=== PATIENT | male | born 1960 | race Caucasian/White ===

== ENCOUNTER 2018-02-21 09:04 | Inpatient (IN) | payer BC ==
[2018-02-21 10:37] VITALS: BMI 38.9
--- NOTE | 2018-02-21 13:36 | HP ---
CIWA Score - CIWA Score Nausea/Vomitin Muscle Tremors: 3 Anxiety: 3 Agitation: 3 Paroxysmal Sweats: 1-Minimal Palms Moist Orientation: 0-Oriented Tacttile Disturbances: 1-Very Mild Itch/Numbness Auditory Disturbances: 1-Very Mild Visual Disturbances: 0-None Headache: 2-Mild CIWA-Ar Total Score: 17 Admission ROS BHS - HPI Chief Complaint: i need help to stop drinking alcohol and cocaine Allergies/Adverse Reactions: Allergies Allergy/AdvReac Type Severity Reaction Status Date / Time No Known Allergies Allergy Verified 02/21/18 10:43 History of Present Illness: this 57 years old male with alcohol and cocaine dependence,seeking detox, withdrawal symptom,alst detox 2013 at [facility] htn and diabetes type 2 nicotine dependence anxiety,depression,insomnia longest sobriety 1 year Exam Limitations: No Limitations - Ebola screening Have you traveled outside of the country in the last 21 days: No (N) Have you had contact with anyone from an Ebola affected area: No Have you been sick,other than usual withdrawal symptoms: No Do you have a fever: No - Review of Systems Constitutional: Loss of Appetite, Malaise, Night Sweats, Changes in sleep, Weakness EENT: reports: Tearing, Nose Congestion Respiratory: reports: No Symptoms reported, Other (asthma) Cardiac: reports: No Symptoms Reported GI: reports: Diarrhea, Nausea, Vomiting, Abdominal cramping : reports: No Symptoms Reported Musculoskeletal: reports: Back Pain, Muscle Pain Integumentary: reports: Dryness Neuro: reports: Headache, Tremors Endocrine: reports: No Symptoms Reported Hematology: reports: No Symptoms Reported Psychiatric: reports: No Sypmtoms Reported, Judgement Intact, Mood/Affect Appropiate, Orientated x3, Anxious, Depressed (insomnia) Patient History - Patient Medical History Hx Asthma: Yes (on albuterol inhaler) Hx Chronic Obstructive Pulmonary Disease (COPD): No Hx Cancer: No Hx Cardiac Disorders: No Hx Congestive Heart Failure: No Hx Hypertension: Yes (on med) Hx Hypercholesterolemia: Yes Hx Pacemaker: No HX Cerebrovascular Accident: No Hx Seizures: No Hx Dementia: No Hx Diabetes: Yes (NIDDM) Hx Gastrointestinal Disorders: No Hx Liver Disease: No Hx Genitourinary Disorders: No Hx Sexually Transmitted Disorders: Yes (gonorrhea) Hx Renal Disease (ESRD): No Hx Thyroid Disease: No Hx Human Immunodeficiency Virus (HIV): No (last 2015 negative) Hx Hepatitis C: Yes (treated) Hx Depression: Yes (anxiety) Hx Suicide Attempt: No Hx Bipolar Disorder: No Hx Schizophrenia: No Other Medical History: insomnia,no suicidal,no homicidal - Patient Surgical History Past Surgical History: Yes Hx Neurologic Surgery: No Hx Cataract Extraction: No Hx Cardiac Surgery: No Hx Lung Surgery: No Hx Breast Surgery: No Hx Breast Biopsy: No Hx Abdominal Surgery: No Hx Appendectomy: No Hx Cholecystectomy: No Hx Genitourinary Surgery: No Hx Section: No Hx Orthopedic Surgery: Yes (fx, right elbow 2002) Anesthesia Reaction: No - PPD History Previous Implant?: Yes Documented Results: Negative w/o proof Implanted On Prior [facility] Admission?: No PPD to be Administered?: Yes - Smoking Cessation Smoking history: Current every day smoker Have you smoked in the past 12 months: Yes Aproximately how many cigarettes per day: 6 Hx Chewing Tobacco Use: No Initiated information on smoking cessation: Yes 'Breaking Loose' booklet given: 02/21/18 - Substance & Tx. History Hx Alcohol Use: Yes Hx Substance Use: Yes Substance Use Type: Alcohol, Cocaine Hx Substance Use Treatment: Yes (2012 [facility]) - Substances Abused Cocaine Route: Inhalation Frequency: 1-2 times per week Amount used: $100 Age of first use: 23 Date of Last Use: 02/19/18 Alcohol-beer Route: Oral Frequency: Daily Amount used: 1-2 6 pks. Age of first use: 16 Date of Last Use: 02/21/18 Family Disease History - Family Disease History Family Disease History: Other: Father (alcohol,), Mother () Admission Physical Exam [facility] - Vital Signs Vital Signs: Vital Signs - 24 hr 02/21/18 10:31 Temperature 97.5 F L Pulse Rate 84 Respiratory 20 Rate Blood Pressure 150/91 - Physical General Appearance: Yes: Moderate Distress, Tremorous, Irritable, Sweating, Anxious HEENTM: Yes: Normal ENT Inspection, [place], Pharynx Normal Respiratory: Yes: Lungs Clear, Normal Breath Sounds, No Respiratory Distress Neck: Yes: Within Normal Limits, Supple, Trachea in good position Breast: Yes: Within Normal Limits Cardiology: Yes: Within Normal Limits, Regular Rhythm, Regular Rate, S1, S2 Abdominal: Yes: Within Normal Limits, Normal Bowel Sounds, Non Tender, Flat, Soft Genitourinary: Yes: Within Normal Limits Back: Yes: Muscle Spasm Musculoskeletal: Yes: Back pain, Muscle Pain Extremities: Yes: Tremors, Inflammation Neurological: Yes: Fully Oriented, Alert, Motor Strength 5/5 Integumentary: Yes: Dry Lymphatic: Yes: Within Normal Limits - Diagnostic (1) Alcohol dependence with uncomplicated withdrawal Current Visit: Yes Status: Acute (2) Cocaine dependence Current Visit: Yes Status: Acute (3) Syncope Current Visit: Yes Status: Acute (4) Essential hypertension Current Visit: Yes Status: Acute (5) DM2 (diabetes mellitus, type 2) Current Visit: Yes Status: Acute (6) Nicotine dependence Current Visit: Yes Status: Acute (7) Arthritis of both knees Current Visit: Yes Status: Acute Cleared for Admission [facility] - Detox or Rehab [facility] Level of Care: Medically Managed Detox Regimen/Protocol: Librium [facility] Breath Alcohol Content Breath Alcohol Content: 0.064 Urine Drug Screen - Results Drug Screen Negative: No Urine Drug Screen Results: AFTAB-Cocaine
[2018-02-21] MEDS ORDERED: MAGNESIUM HYDROX 2400MG/30ML ORAL SUSPENSION 30 ML CUP PO PRN (13:49)
[2018-02-21] MEDS ORDERED: NICOTINE POLACRILEX 2 MG GUM BUC PRN (13:49)
[2018-02-21] MEDS ORDERED: MAGNESIUM CITRATE 300 ML BOTTLE PO PRN (13:49)
[2018-02-21] MEDS ORDERED: LOPERAMIDE HCL 2 MG CAPSULE PO PRN (13:49)
[2018-02-21] MEDS ORDERED: guaiFENesin/D-METHORPHAN HB 10 ML UNIT-DOSE CUPS PO PRN (13:49)
[2018-02-21] MEDS ORDERED: MAG HYDROX/AL HYDROX/SIMETH 30 ML UNIT-DOSE CUP PO PRN (13:49)
[2018-02-21] MEDS ORDERED: chlordiazePOXIDE HCL 25 MG CAPSULE PO PRN (13:49)
[2018-02-21] MEDS ORDERED: P-EPHED 60MG/TRIPROLIDI 2.5MG TABLET PO PRN (13:49)
[2018-02-21] MEDS ORDERED: MENTHOL/PHENOL 1 EACH UD MM PRN (13:49)
[2018-02-21] MEDS ORDERED: chlordiazePOXIDE HCL 25 MG CAPSULE PO ONE (13:55)
[2018-02-21] MEDS: chlordiazePOXIDE HCL 25 MG CAPSULE PO SCH ×2 (17:46→22:16)
[2018-02-21 18:48] LABS: URINE APPEARANCE CLEAR; URINE BILIRUBIN NEGATIVE (<2.0 mg/dL); URINE BLOOD NEGATIVE (NEGATIVE); URINE COLOR LTYELLOW; URINE GLUCOSE (UA) NEGATIVE (NEGATIVE); URINE KETONE NEGATIVE (NEGATIVE); URINE LEUK ESTERASE NEGATIVE (NEGATIVE); URINE NITRITE NEGATIVE (NEGATIVE); URINE PROTEIN NEGATIVE (NEGATIVE); URINE UROBILINOGEN NEGATIVE mg/dL (0.2-1.0)
[2018-02-21] MEDS: THIAMINE HCL 100 MG TABLET (FP) PO SCH (22:16)
[2018-02-22] MEDS: chlordiazePOXIDE HCL 25 MG CAPSULE PO SCH ×4 (05:23→22:23)
[2018-02-22] MEDS: sitaGLIPtin PHOSPHATE 100 MG TABLET (FP) PO SCH (06:12)
[2018-02-22] MEDS ORDERED: cloNIDine HCL 0.1 MG TABLET PO ONE (06:40)
--- NOTE | 2018-02-22 06:43 | PN ---
BHS Progress Note Note: Patient's blood pressure this morning is B/P 183/99. Patient is asymptomatic. Vital Signs Temperature 96.6 F L 02/22/18 05:52 Pulse Rate 78 02/22/18 05:52 Respiratory Rate 20 02/22/18 05:52 Blood Pressure 183/99 02/22/18 05:52 O2 Sat by Pulse Oximetry (%) Action: Clonidine 0.1mg tablet oral ordered.
[2018-02-22] MEDS ORDERED: sitaGLIPtin PHOSPHATE 100 MG TABLET (FP) PO SCH (10:00)
[2018-02-22 10:12] LABS: HEMATOCRIT 39.4 % (35.4-49); HEMOGLOBIN 13.5 GM/dL (11.7-16.9); MCH 31.9 pg (25.7-33.7); MCHC 34.3 g/dl (32.0-35.9); MEAN PLT VOLUME 8.5 fl (7.5-11.1); PLATELET COUNT 340 K/MM3 (134-434); RBC 4.24 M/mm3 (4.00-5.60); RDW 13.3 % (11.9-15.9)
[2018-02-22] MEDS: LISINOPRIL 20 MG TABLET (FP) PO SCH (10:22)
[2018-02-22] MEDS: PRENATAL VITAMINS W/ FOLIC ACID TABLET (FP) PO SCH (10:22)
[2018-02-22] MEDS: ACETAMINOPHEN 325 MG TABLET (FP) PO PRN ×2 (10:22→17:28)
[2018-02-22 10:31] LABS: CHLORIDE 102 mmol/L (98-107); POTASSIUM 4.1 mmol/L (3.5-5.1); SODIUM 138 mmol/L (136-145)
[2018-02-22 10:41] LABS: ALK PHOS 89 U/L (45-117); ANION GAP 8 (8-16); BILIRUBIN,TOTAL 0.4 mg/dL (0.2-1.0); BLOOD UREA NITROGEN 11 mg/dL (7-18); CALCIUM 9.1 mg/dL (8.5-10.1); CO2 28 mmol/L (21-32); CREATININE 0.8 mg/dL (0.7-1.3); GLUCOSE,RANDOM 147 mg/dL (74-106); SGOT/AST 26 U/L (15-37); SGPT/ALT 31 U/L (12-78); TOT PROT 8.2 g/dl (6.4-8.2)
--- NOTE | 2018-02-22 12:42 | PN ---
[facility] CIWA - CIWA Score Nausea/Vomitin-No Nausea/No Vomiting Muscle Tremors: 4-Moderate,w/Arms Extend Anxiety: 4-Mod. Anxious/Guarded Agitation: 4-Moderately Restless Paroxysmal Sweats: 1-Minimal Palms Moist Orientation: 0-Oriented Tacttile Disturbances: 0-None Auditory Disturbances: 0-None Visual Disturbances: 0-None Headache: 0-None Present CIWA-Ar Total Score: 13 S Progress Note (SOAP) Subjective: ANXIETY,FATIGUE, RIGHT KNEE PAIN. DENIES TRUAMA. Objective: 02/22/18 12:41 Vital Signs 02/22/18 02/22/18 05:52 09:14 Temperature 96.6 F L 97.2 F L Pulse Rate 78 88 Respiratory 20 20 Rate Blood Pressure 183/99 123/79 Laboratory Tests 02/21/18 02/21/18 02/21/18 11:10 15:00 16:32 WBC RBC Hgb Hct MCV MCH MCHC RDW Plt Count MPV Sodium Potassium Chloride Carbon Dioxide Anion Gap BUN Creatinine Creat Clearance w eGFR POC Glucometer 189 132 Random Glucose Calcium Total Bilirubin AST ALT Alkaline Phosphatase Total Protein Albumin Urine Color Ltyellow Urine Appearance Clear Urine pH 6.0 Ur Specific [place] 1.012 Urine Protein Negative Urine Glucose (UA) Negative Urine Ketones Negative Urine Blood Negative Urine Nitrite Negative Urine Bilirubin Negative Urine Urobilinogen Negative Ur Leukocyte Esterase Negative 02/22/18 02/22/18 02/22/18 05:23 06:00 06:00 WBC 6.0 RBC 4.24 Hgb 13.5 Hct 39.4 MCV 93.0 MCH 31.9 MCHC 34.3 RDW 13.3 Plt Count 340 MPV 8.5 Sodium 138 Potassium 4.1 Chloride 102 Carbon Dioxide 28 Anion Gap 8 BUN 11 Creatinine 0.8 Creat Clearance w eGFR > 60 POC Glucometer 151 Random Glucose 147 H Calcium 9.1 Total Bilirubin 0.4 AST 26 ALT 31 Alkaline Phosphatase 89 Total Protein 8.2 Albumin 4.0 Urine Color Urine Appearance Urine pH Ur Specific [place] Urine Protein Urine Glucose (UA) Urine Ketones Urine Blood Urine Nitrite Urine Bilirubin Urine Urobilinogen Ur Leukocyte Esterase EXAM: NO REDNESS OR SWELLING TO RIGHT OR LEFT KNEE. ACTIVE ROM TO BOTH. Assessment: 02/22/18 12:41 WITHDRAWAL SX Plan: CONTINUE DETOX MOTRIN PRN
--- NOTE | 2018-02-22 13:30 | EKG ---
Test Reason : Blood Pressure : / mmHG Vent. Rate : 103 BPM Atrial Rate : 103 BPM P-R Int : 134 ms QRS Dur : 094 ms QT Int : 360 ms P-R-T Axes : 050 027 064 degrees QTc Int : 471 ms POOR DATA QUALITY, INTERPRETATION MAY BE ADVERSELY AFFECTED SINUS TACHYCARDIA POSSIBLE LEFT ATRIAL ENLARGEMENT LEFT VENTRICULAR HYPERTROPHY ABNORMAL ECG NO PREVIOUS ECGS AVAILABLE Confirmed by MD DAYSI, GUSTAVO ([id number]) on 02/22/2018 1:30:03 PM Referred By: Confirmed By:GUSTAVO TAVAREZ MD
--- NOTE | 2018-02-22 13:47 | CONSULT ---
[facility] Psychiatric Consult - Data Date of interview: 02/22/18 Admission source: [facility] Identifying data: Patient is a 57 year old single male, father of one, domiciled and currently employed. This is patient's first admission to detox at [facility]. Pt. admitted to for alcohol and cocaine dependence. Substance Abuse History: Smoking Cessation. Smoking history: Current every day smoker. Have you smoked in the past 12 months: Yes. Aproximately how many cigarettes per day: 6. Hx Chewing Tobacco Use: No. Initiated information on smoking cessation: Yes. 'Breaking Loose' booklet given: 02/21/18. - Substance & Tx. History. Hx Alcohol Use: Yes. Hx Substance Use: Yes. Substance Use Type : Alcohol, Cocaine. Hx Substance Use Treatment: Yes (2012 [facility]) . - Substances Abused. Cocaine. Route: Inhalation. Frequency: 1-2 times per week. Amount used: $100. Age of first use: 23. Date of Last Use: . Alcohol-beer. Route: Oral. Frequency: Daily. Amount used: 1-2 6 pks. Age of first use: 16. Date of Last Use: 02/21/18 Medical History: Asthma, hypertension, diabetes. Psychiatric History: Patient unable to give a cohesive psychiatric history. Pt. reports one psychiatric hospitalization approximately 7 years ago after endorsing auditory hallucinations but is not sure if it was drug induced. Pt. denies h/o accepting medications and outpatient care. Pt. denies h/o suicide attempt. Physical/Sexual Abuse/Trauma History: Denies. Mental Status Exam - Mental Status Exam Alert and Oriented to: Time, Place, Person Cognitive Function: Good Patient Appearance: Well Groomed Mood: Withdrawn Affect: Mood Congruent Patient Behavior: Fatigued Speech Pattern: Delayed Voice Loudness: Moderately Soft/Quiet Thought Process: Goal Oriented Thought Disorder: Not Present Hallucinations: Denies Suicidal Ideation: Denies Homicidal Ideation: Denies Insight/Judgement: Poor Sleep: Poorly Appetite: Fair Muscle strength/Tone: Normal Gait/Station: Other (Did not observe patient's gait.) Psychiatric Findings - Problem List ([place] 1, 2,3) (1) Insomnia Current Visit: Yes Status: Acute (2) Alcohol dependence with uncomplicated withdrawal Current Visit: Yes Status: Acute (3) Cocaine dependence Current Visit: Yes Status: Acute Qualifiers: Substance use status: uncomplicated Qualified Code(s): F14.20 - Cocaine dependence, uncomplicated (4) Substance induced mood disorder Current Visit: Yes Status: Suspected - Initial Treatment Plan Initial Treatment Plan: Psychoeducation provided. Detoxification provided. Melatonin 5mg ordered. Medication not accepted yesterday. Pt. encouraged to accept melatonin 5mg for insomnia. Benefits and side effects discussed. Verbal consent given. Will continue to monitor.
[2018-02-22] MEDS: HYDROCORTISONE 1% TOPICAL CREAM 30 GM TUBE TP SCH ×2 (13:52→22:23)
[2018-02-22] MEDS: THIAMINE HCL 100 MG TABLET (FP) PO SCH (22:23)
[2018-02-22] MEDS: MELATONIN 5 MG TABLETS PO PRN (22:52)
[2018-02-23] MEDS: chlordiazePOXIDE HCL 25 MG CAPSULE PO SCH ×2 (05:21→10:20)
[2018-02-23] MEDS: sitaGLIPtin PHOSPHATE 100 MG TABLET (FP) PO SCH (07:32)
[2018-02-23] MEDS: INSULIN SLIDING SCALE (NOVOLOG) 1 VIAL SQ SCH ×2 (07:35→16:50)
[2018-02-23] MEDS: ACETAMINOPHEN 325 MG TABLET (FP) PO PRN (07:36)
[2018-02-23] MEDS: LISINOPRIL 20 MG TABLET (FP) PO SCH (10:20)
[2018-02-23] MEDS: HYDROCORTISONE 1% TOPICAL CREAM 30 GM TUBE TP SCH ×2 (10:20→22:29)
[2018-02-23] MEDS: PRENATAL VITAMINS W/ FOLIC ACID TABLET (FP) PO SCH (10:20)
[2018-02-23] MEDS: IBUPROFEN 400 MG TABLET (FP) PO PRN (10:21)
--- NOTE | 2018-02-23 14:25 | PN ---
[facility] CIWA - CIWA Score Nausea/Vomitin-No Nausea/No Vomiting Muscle Tremors: 4-Moderate,w/Arms Extend Anxiety: 4-Mod. Anxious/Guarded Agitation: 4-Moderately Restless Paroxysmal Sweats: 1-Minimal Palms Moist Orientation: 0-Oriented Tacttile Disturbances: 3-Moderate Itch/Numb/Burn Auditory Disturbances: 0-None Visual Disturbances: 0-None Headache: 0-None Present CIWA-Ar Total Score: 16 BHS Progress Note (SOAP) Subjective: ANXIETY,IRRITABILITY,SEVER LOWER BACK PAIN. Objective: 02/23/18 14:24 Vital Signs 02/23/18 02/23/18 02/23/18 06:48 09:26 13:59 Temperature 96.3 F L 97.5 F L 96.6 F L Pulse Rate 79 92 H 84 Respiratory 18 20 20 Rate Blood Pressure 138/82 170/100 143/90 Laboratory Tests 02/21/18 02/21/18 02/21/18 11:10 15:00 16:32 WBC RBC Hgb Hct MCV MCH MCHC RDW Plt Count MPV Sodium Potassium Chloride Carbon Dioxide Anion Gap BUN Creatinine Creat Clearance w eGFR POC Glucometer 189 132 Random Glucose Calcium Total Bilirubin AST ALT Alkaline Phosphatase Total Protein Albumin Urine Color Ltyellow Urine Appearance Clear Urine pH 6.0 Ur Specific [place] 1.012 Urine Protein Negative Urine Glucose (UA) Negative Urine Ketones Negative Urine Blood Negative Urine Nitrite Negative Urine Bilirubin Negative Urine Urobilinogen Negative Ur Leukocyte Esterase Negative RPR Titer 02/22/18 02/22/18 02/22/18 05:23 06:00 06:00 WBC 6.0 RBC 4.24 Hgb 13.5 Hct 39.4 MCV 93.0 MCH 31.9 MCHC 34.3 RDW 13.3 Plt Count 340 MPV 8.5 Sodium 138 Potassium 4.1 Chloride 102 Carbon Dioxide 28 Anion Gap 8 BUN 11 Creatinine 0.8 Creat Clearance w eGFR > 60 POC Glucometer 151 Random Glucose 147 H Calcium 9.1 Total Bilirubin 0.4 AST 26 ALT 31 Alkaline Phosphatase 89 Total Protein 8.2 Albumin 4.0 Urine Color Urine Appearance Urine pH Ur Specific [place] Urine Protein Urine Glucose (UA) Urine Ketones Urine Blood Urine Nitrite Urine Bilirubin Urine Urobilinogen Ur Leukocyte Esterase RPR Titer 02/22/18 02/22/18 02/23/18 06:00 16:20 05:24 WBC RBC Hgb Hct MCV MCH MCHC RDW Plt Count MPV Sodium Potassium Chloride Carbon Dioxide Anion Gap BUN Creatinine Creat Clearance w eGFR POC Glucometer 193 153 Random Glucose Calcium Total Bilirubin AST ALT Alkaline Phosphatase Total Protein Albumin Urine Color Urine Appearance Urine pH Ur Specific [place] Urine Protein Urine Glucose (UA) Urine Ketones Urine Blood Urine Nitrite Urine Bilirubin Urine Urobilinogen Ur Leukocyte Esterase RPR Titer Nonreactive Assessment: 02/23/18 14:24 WITHDRAWAL SX Plan: CONTINUE DETOX LIDOCAINE PATCH DIRECTED
[2018-02-23] MEDS ORDERED: LIDOCAINE 5% TOPICAL PATCH TP ONE (15:00)
[2018-02-23] MEDS: chlordiazePOXIDE 5 MG CAPSULE PO SCH ×2 (17:23→22:30)
[2018-02-23] MEDS: hydrOXYzine PAMOATE 50 MG CAPSULE (FP) PO PRN (17:23)
--- NOTE | 2018-02-23 18:03 | PN ---
BHS Progress Note Note: Patient iwth asymptomatic BP 168/101 conidine 0.1 mg increase fluids continue to monitor
[2018-02-23] MEDS ORDERED: cloNIDine HCL 0.1 MG TABLET PO ONE (18:30)
[2018-02-23] MEDS ORDERED: chlordiazePOXIDE HCL 10 MG CAPSULE PO ONE (19:39)
[2018-02-23] MEDS ORDERED: chlordiazePOXIDE HCL 25 MG CAPSULE PO ONE (19:41)
[2018-02-23] MEDS ORDERED: HYDROCHLOROTHIAZIDE 25 MG TABLET (FP) PO SCH (22:00)
[2018-02-23] MEDS ORDERED: LIDOCAINE PATCH REMOVAL MC SCH (22:00)
[2018-02-23] MEDS: LIDOCAINE PATCH REMOVAL MC SCH (22:30)
[2018-02-23] MEDS: HYDROCHLOROTHIAZIDE 25 MG TABLET (FP) PO SCH (22:30)
[2018-02-23] MEDS: MELATONIN 5 MG TABLETS PO PRN (22:30)
[2018-02-23] MEDS: THIAMINE HCL 100 MG TABLET (FP) PO SCH (22:31)
--- NOTE | 2018-02-23 23:50 | PN ---
[facility] Progress Note Note: Vital Signs - 8 hr 02/23/18 02/23/18 02/23/18 18:03 22:00 23:26 Temperature 98.6 F 98 F Pulse Rate 91 H 95 H 98 H Respiratory 18 20 18 Rate Blood Pressure 168/101 181/104 164/87 Patient with elevated asymptomatic BP Pallavi 25 mg ordered at 19:41 HCTZ 25 mg BID ordered at 19:41 Continue to monitor
[2018-02-24] MEDS: chlordiazePOXIDE 5 MG CAPSULE PO SCH ×2 (05:51→10:50)
[2018-02-24] MEDS: ACETAMINOPHEN 325 MG TABLET (FP) PO PRN (05:53)
[2018-02-24] MEDS: sitaGLIPtin PHOSPHATE 100 MG TABLET (FP) PO SCH (07:07)
[2018-02-24] MEDS: INSULIN SLIDING SCALE (NOVOLOG) 1 VIAL SQ SCH ×2 (07:08→17:25)
[2018-02-24] MEDS ORDERED: INSULIN (NOVOLOG) ASPART 100 UNITS/ML 10ML VIAL ONE ×2 (07:21→17:00)
[2018-02-24] MEDS ORDERED: LIDOCAINE 5% TOPICAL PATCH TP SCH (10:00)
[2018-02-24] MEDS: PRENATAL VITAMINS W/ FOLIC ACID TABLET (FP) PO SCH (10:50)
[2018-02-24] MEDS: LISINOPRIL 20 MG TABLET (FP) PO SCH (10:50)
[2018-02-24] MEDS: HYDROCHLOROTHIAZIDE 25 MG TABLET (FP) PO SCH ×2 (10:50→22:39)
[2018-02-24] MEDS: HYDROCORTISONE 1% TOPICAL CREAM 30 GM TUBE TP SCH ×2 (10:50→22:43)
--- NOTE | 2018-02-24 15:30 | PN ---
BHS Progress Note (SOAP) Subjective: PT C/O LIGHT HEADEDNESS WHEN STANDING. ALERT O X 3. DECREASED TREMORS. Objective: 02/24/18 15:30 Vital Signs 02/24/18 02/24/18 02/24/18 07:47 10:00 14:48 Temperature 97.5 F L 97.7 F 97.5 F L Pulse Rate 87 96 H 95 H Respiratory 18 19 18 Rate Blood Pressure 133/91 145/82 145/87 Laboratory Tests 02/21/18 02/21/18 02/21/18 11:10 15:00 16:32 WBC RBC Hgb Hct MCV MCH MCHC RDW Plt Count MPV Sodium Potassium Chloride Carbon Dioxide Anion Gap BUN Creatinine Creat Clearance w eGFR POC Glucometer 189 132 Random Glucose Calcium Total Bilirubin AST ALT Alkaline Phosphatase Total Protein Albumin Urine Color Ltyellow Urine Appearance Clear Urine pH 6.0 Ur Specific [place] 1.012 Urine Protein Negative Urine Glucose (UA) Negative Urine Ketones Negative Urine Blood Negative Urine Nitrite Negative Urine Bilirubin Negative Urine Urobilinogen Negative Ur Leukocyte Esterase Negative RPR Titer 02/22/18 02/22/18 02/22/18 05:23 06:00 06:00 WBC 6.0 RBC 4.24 Hgb 13.5 Hct 39.4 MCV 93.0 MCH 31.9 MCHC 34.3 RDW 13.3 Plt Count 340 MPV 8.5 Sodium 138 Potassium 4.1 Chloride 102 Carbon Dioxide 28 Anion Gap 8 BUN 11 Creatinine 0.8 Creat Clearance w eGFR > 60 POC Glucometer 151 Random Glucose 147 H Calcium 9.1 Total Bilirubin 0.4 AST 26 ALT 31 Alkaline Phosphatase 89 Total Protein 8.2 Albumin 4.0 Urine Color Urine Appearance Urine pH Ur Specific [place] Urine Protein Urine Glucose (UA) Urine Ketones Urine Blood Urine Nitrite Urine Bilirubin Urine Urobilinogen Ur Leukocyte Esterase RPR Titer 02/22/18 02/22/18 02/23/18 06:00 16:20 05:24 WBC RBC Hgb Hct MCV MCH MCHC RDW Plt Count MPV Sodium Potassium Chloride Carbon Dioxide Anion Gap BUN Creatinine Creat Clearance w eGFR POC Glucometer 193 153 Random Glucose Calcium Total Bilirubin AST ALT Alkaline Phosphatase Total Protein Albumin Urine Color Urine Appearance Urine pH Ur Specific [place] Urine Protein Urine Glucose (UA) Urine Ketones Urine Blood Urine Nitrite Urine Bilirubin Urine Urobilinogen Ur Leukocyte Esterase RPR Titer Nonreactive 02/23/18 02/24/18 16:22 05:51 WBC RBC Hgb Hct MCV MCH MCHC RDW Plt Count MPV Sodium Potassium Chloride Carbon Dioxide Anion Gap BUN Creatinine Creat Clearance w eGFR POC Glucometer 198 205 Random Glucose Calcium Total Bilirubin AST ALT Alkaline Phosphatase Total Protein Albumin Urine Color Urine Appearance Urine pH Ur Specific [place] Urine Protein Urine Glucose (UA) Urine Ketones Urine Blood Urine Nitrite Urine Bilirubin Urine Urobilinogen Ur Leukocyte Esterase RPR Titer Assessment: 02/24/18 15:30 WITHDRAWAL SX Plan: CONTINUE DETOX MONITOR PT
[2018-02-24] MEDS: chlordiazePOXIDE HCL 10 MG CAPSULE PO SCH ×2 (17:21→22:40)
[2018-02-24] MEDS: IBUPROFEN 400 MG TABLET (FP) PO PRN (17:24)
[2018-02-24] MEDS: THIAMINE HCL 100 MG TABLET (FP) PO SCH (22:39)
[2018-02-24] MEDS: MELATONIN 5 MG TABLETS PO PRN (22:40)
[2018-02-24] MEDS: hydrOXYzine PAMOATE 50 MG CAPSULE (FP) PO PRN (22:41)
[2018-02-24] MEDS: LIDOCAINE PATCH REMOVAL MC SCH (22:44)
[2018-02-25] MEDS: chlordiazePOXIDE HCL 10 MG CAPSULE PO SCH (05:24)
[2018-02-25] MEDS ORDERED: INSULIN (NOVOLOG) ASPART 100 UNITS/ML 10ML VIAL ONE (05:26)
[2018-02-25] MEDS: sitaGLIPtin PHOSPHATE 100 MG TABLET (FP) PO SCH (06:23)
[2018-02-25] MEDS: INSULIN SLIDING SCALE (NOVOLOG) 1 VIAL SQ SCH (06:23)
[2018-02-25 10:15] VITALS: BP 143/96; PULSE 108; TEMP 97.5
--- NOTE | 2018-02-25 10:39 | PN ---
S Progress Note (SOAP) Subjective: DETOX COMPLETED. ALERT O X 3. NAD.PT HAS HIS PRIMARY CARE AT [facility] WITH DR JERONIMO. REPORTS HE HAS AN APPOINTMENT TODAY WITH HIS DOCTOR FOR FOOT CHECK. WILL FOLLOW UP WITH AFTERCARE. Objective: 02/25/18 10:37 Vital Signs - 24 hr 02/24/18 02/24/18 02/24/18 14:48 18:01 22:14 Temperature 97.5 F L 98.2 F 98.1 F Pulse Rate 95 H 97 H 100 H Respiratory 18 18 18 Rate Blood Pressure 145/87 142/93 149/94 02/25/18 02/25/18 02/25/18 00:30 03:30 06:38 Temperature 97.2 F L Pulse Rate 105 H Respiratory 18 18 20 Rate Blood Pressure 160/95 02/25/18 02/25/18 07:22 10:14 Temperature 97.5 F L Pulse Rate 102 H 108 H Respiratory 20 20 Rate Blood Pressure 135/81 143/96 Laboratory Tests 02/21/18 02/21/18 02/21/18 11:10 15:00 16:32 WBC RBC Hgb Hct MCV MCH MCHC RDW Plt Count MPV Sodium Potassium Chloride Carbon Dioxide Anion Gap BUN Creatinine Creat Clearance w eGFR POC Glucometer 189 132 Random Glucose Calcium Total Bilirubin AST ALT Alkaline Phosphatase Total Protein Albumin Urine Color Ltyellow Urine Appearance Clear Urine pH 6.0 Ur Specific [place] 1.012 Urine Protein Negative Urine Glucose (UA) Negative Urine Ketones Negative Urine Blood Negative Urine Nitrite Negative Urine Bilirubin Negative Urine Urobilinogen Negative Ur Leukocyte Esterase Negative RPR Titer 02/22/18 02/22/18 02/22/18 05:23 06:00 06:00 WBC 6.0 RBC 4.24 Hgb 13.5 Hct 39.4 MCV 93.0 MCH 31.9 MCHC 34.3 RDW 13.3 Plt Count 340 MPV 8.5 Sodium 138 Potassium 4.1 Chloride 102 Carbon Dioxide 28 Anion Gap 8 BUN 11 Creatinine 0.8 Creat Clearance w eGFR > 60 POC Glucometer 151 Random Glucose 147 H Calcium 9.1 Total Bilirubin 0.4 AST 26 ALT 31 Alkaline Phosphatase 89 Total Protein 8.2 Albumin 4.0 Urine Color Urine Appearance Urine pH Ur Specific [place] Urine Protein Urine Glucose (UA) Urine Ketones Urine Blood Urine Nitrite Urine Bilirubin Urine Urobilinogen Ur Leukocyte Esterase RPR Titer 02/22/18 02/22/18 02/23/18 06:00 16:20 05:24 WBC RBC Hgb Hct MCV MCH MCHC RDW Plt Count MPV Sodium Potassium Chloride Carbon Dioxide Anion Gap BUN Creatinine Creat Clearance w eGFR POC Glucometer 193 153 Random Glucose Calcium Total Bilirubin AST ALT Alkaline Phosphatase Total Protein Albumin Urine Color Urine Appearance Urine pH Ur Specific [place] Urine Protein Urine Glucose (UA) Urine Ketones Urine Blood Urine Nitrite Urine Bilirubin Urine Urobilinogen Ur Leukocyte Esterase RPR Titer Nonreactive 02/23/18 02/24/18 02/24/18 16:22 05:51 16:39 WBC RBC Hgb Hct MCV MCH MCHC RDW Plt Count MPV Sodium Potassium Chloride Carbon Dioxide Anion Gap BUN Creatinine Creat Clearance w eGFR POC Glucometer 198 205 404 Random Glucose Calcium Total Bilirubin AST ALT Alkaline Phosphatase Total Protein Albumin Urine Color Urine Appearance Urine pH Ur Specific [place] Urine Protein Urine Glucose (UA) Urine Ketones Urine Blood Urine Nitrite Urine Bilirubin Urine Urobilinogen Ur Leukocyte Esterase RPR Titer 02/25/18 05:24 WBC RBC Hgb Hct MCV MCH MCHC RDW Plt Count MPV Sodium Potassium Chloride Carbon Dioxide Anion Gap BUN Creatinine Creat Clearance w eGFR POC Glucometer 240 Random Glucose Calcium Total Bilirubin AST ALT Alkaline Phosphatase Total Protein Albumin Urine Color Urine Appearance Urine pH Ur Specific [place] Urine Protein Urine Glucose (UA) Urine Ketones Urine Blood Urine Nitrite Urine Bilirubin Urine Urobilinogen Ur Leukocyte Esterase RPR Titer Assessment: 02/25/18 10:37 MEDICALLY STABLE Plan: D/C PT TODAY
--- NOTE | 2018-02-25 10:43 | DS ---
[facility] Detox Discharge Summary Admission Date: 02/21/18 Discharge Date: 02/25/18 - History Present History: Alcohol Dependence, Cocaine Dependence Additional Comments: DETOX COMPLETED. ALERT O X 3. NAD. PT TO FOLLOW UP WITH PMD DR. CARD AT [facility] NEEDED. Pertinent Past History: PLEASE SEE DX BELOW - Physical Exam Results Vital Signs: Vital Signs Temperature 97.5 F L 02/25/18 10:14 Pulse Rate 108 H 02/25/18 10:14 Respiratory Rate 20 02/25/18 10:14 Blood Pressure 143/96 02/25/18 10:14 O2 Sat by Pulse Oximetry (%) Pertinent Admission Physical Exam Findings: WITHDRAWAL SX Laboratory Tests 02/21/18 02/21/18 02/21/18 11:10 15:00 16:32 WBC RBC Hgb Hct MCV MCH MCHC RDW Plt Count MPV Sodium Potassium Chloride Carbon Dioxide Anion Gap BUN Creatinine Creat Clearance w eGFR POC Glucometer 189 132 Random Glucose Calcium Total Bilirubin AST ALT Alkaline Phosphatase Total Protein Albumin Urine Color Ltyellow Urine Appearance Clear Urine pH 6.0 Ur Specific [place] 1.012 Urine Protein Negative Urine Glucose (UA) Negative Urine Ketones Negative Urine Blood Negative Urine Nitrite Negative Urine Bilirubin Negative Urine Urobilinogen Negative Ur Leukocyte Esterase Negative RPR Titer 02/22/18 02/22/18 02/22/18 05:23 06:00 06:00 WBC 6.0 RBC 4.24 Hgb 13.5 Hct 39.4 MCV 93.0 MCH 31.9 MCHC 34.3 RDW 13.3 Plt Count 340 MPV 8.5 Sodium 138 Potassium 4.1 Chloride 102 Carbon Dioxide 28 Anion Gap 8 BUN 11 Creatinine 0.8 Creat Clearance w eGFR > 60 POC Glucometer 151 Random Glucose 147 H Calcium 9.1 Total Bilirubin 0.4 AST 26 ALT 31 Alkaline Phosphatase 89 Total Protein 8.2 Albumin 4.0 Urine Color Urine Appearance Urine pH Ur Specific [place] Urine Protein Urine Glucose (UA) Urine Ketones Urine Blood Urine Nitrite Urine Bilirubin Urine Urobilinogen Ur Leukocyte Esterase RPR Titer 02/22/18 02/22/18 02/23/18 06:00 16:20 05:24 WBC RBC Hgb Hct MCV MCH MCHC RDW Plt Count MPV Sodium Potassium Chloride Carbon Dioxide Anion Gap BUN Creatinine Creat Clearance w eGFR POC Glucometer 193 153 Random Glucose Calcium Total Bilirubin AST ALT Alkaline Phosphatase Total Protein Albumin Urine Color Urine Appearance Urine pH Ur Specific [place] Urine Protein Urine Glucose (UA) Urine Ketones Urine Blood Urine Nitrite Urine Bilirubin Urine Urobilinogen Ur Leukocyte Esterase RPR Titer Nonreactive 02/23/18 02/24/18 02/24/18 16:22 05:51 16:39 WBC RBC Hgb Hct MCV MCH MCHC RDW Plt Count MPV Sodium Potassium Chloride Carbon Dioxide Anion Gap BUN Creatinine Creat Clearance w eGFR POC Glucometer 198 205 404 Random Glucose Calcium Total Bilirubin AST ALT Alkaline Phosphatase Total Protein Albumin Urine Color Urine Appearance Urine pH Ur Specific [place] Urine Protein Urine Glucose (UA) Urine Ketones Urine Blood Urine Nitrite Urine Bilirubin Urine Urobilinogen Ur Leukocyte Esterase RPR Titer 02/25/18 05:24 WBC RBC Hgb Hct MCV MCH MCHC RDW Plt Count MPV Sodium Potassium Chloride Carbon Dioxide Anion Gap BUN Creatinine Creat Clearance w eGFR POC Glucometer 240 Random Glucose Calcium Total Bilirubin AST ALT Alkaline Phosphatase Total Protein Albumin Urine Color Urine Appearance Urine pH Ur Specific [place] Urine Protein Urine Glucose (UA) Urine Ketones Urine Blood Urine Nitrite Urine Bilirubin Urine Urobilinogen Ur Leukocyte Esterase RPR Titer - Treatment Hospital Course: Detox Protocol Followed, Detoxed Safely, Responded well, Discharged Condition Good - Medication Discharge Medications: Ambulatory Orders Lisinopril [Prinivil -] 40 mg PO DAILY 02/21/18 Sitagliptin Phosphate [Januvia] 100 mg PO DAILY 02/21/18 - Diagnosis (1) Alcohol dependence with uncomplicated withdrawal Current Visit: Yes Status: Acute (2) Arthritis of both knees Current Visit: Yes Status: Chronic (3) Cocaine dependence Current Visit: Yes Status: Acute Qualifiers: Substance use status: uncomplicated Qualified Code(s): F14.20 - Cocaine dependence, uncomplicated (4) DM2 (diabetes mellitus, type 2) Current Visit: Yes Status: Chronic (5) Essential hypertension Current Visit: Yes Status: Acute (6) Hepatitis C Current Visit: Yes Status: Chronic Qualifiers: Viral hepatitis chronicity: chronic (7) Nicotine dependence Current Visit: Yes Status: Acute Qualifiers: Nicotine product type: cigarettes Substance use status: in withdrawal Qualified Code(s): F17.213 - Nicotine dependence, cigarettes, with withdrawal (8) Syncope Current Visit: Yes Status: Suspected Qualifiers: Syncope type: unspecified Qualified Code(s): R55 - Syncope and collapse (9) Lower back pain Current Visit: Yes Status: Acute Qualifiers: Chronicity: unspecified - AMA Did Patient Leave Against Medical Advice: No
== END 2018-02-25 09:40 | disposition home or self-care (01) | DRG 897 ==
LOC: YASAS 09:04 → Y3N 13:53
PROVIDERS: ADMIT Surgery; ATTEND Surgery
PROC: HZ2ZZZZ Detoxification Services for Substance Abuse Treatment (ICD-10-PCS; principal; 2018-02-21)
DX: F10.230 Alcohol dependence with withdrawal, uncomplicated (principal); F14.20 Cocaine dependence, uncomplicated; F17.213 Nicotine dependence, cigarettes, with withdrawal; F19.24 Other psychoactive substance dependence with psychoactive substance-induced mood disorder; I10 Essential (primary) hypertension; E11.9 Type 2 diabetes mellitus without complications; B18.2 Chronic viral hepatitis C; J45.909 Unspecified asthma, uncomplicated; M13.862 Other specified arthritis, left knee; M13.861 Other specified arthritis, right knee; M54.5 Low back pain; G47.00 Insomnia, unspecified; Z87.438 Personal history of other diseases of male genital organs
CPT/HCPCS: 36415; 80053; 81003; 82962; 85027; 86593; 93005; 93010; J0735

== ENCOUNTER 2018-07-21 08:40 | Inpatient (IN) | payer OTHER ==
[2018-07-21 09:17] VITALS: BMI 38.6
--- NOTE | 2018-07-21 10:15 | HP ---
CIWA Score - CIWA Score Nausea/Vomitin Muscle Tremors: 2 Anxiety: 2 Agitation: 2 Paroxysmal Sweats: 1-Minimal Palms Moist Orientation: 0-Oriented Tacttile Disturbances: 1-Very Mild Itch/Numbness Auditory Disturbances: 1-Very Mild Visual Disturbances: 0-None Headache: 2-Mild CIWA-Ar Total Score: 13 CIWA Score Nausea/Vomitin Muscle Tremors: 2 Anxiety: 2 Agitation: 2 Paroxysmal Sweats: 1-Minimal Palms Moist Orientation: 0-Oriented Tacttile Disturbances: 1-Very Mild Itch/Numbness Auditory Disturbances: 1-Very Mild Visual Disturbances: 0-None Headache: 2-Mild CIWA-Ar Total Score: 13 - Admission Criteria Patient presents the following: CIWA greater than 12 Admission Criteria Met: Admission criteria met Admission ROS S - HPI Chief Complaint: i need help to stop drinking and cocaine,seen in [place] last night Allergies/Adverse Reactions: Allergies Allergy/AdvReac Type Severity Reaction Status Date / Time No Known Allergies Allergy Verified 07/21/18 09:27 History of Present Illness: this 58 years old male with alcohol and cocaine dependence,seeking detox, withdrawal symptom,last detox 02/21/18 to 02/25/18 syncope alcohol related history of hypertension and type 2 dm,non compliance hepatitis c treated nicotine dependence anxiety,depression,insomnia longest period of sobriety 1 year also has history of asthma Exam Limitations: No Limitations - Ebola screening Have you traveled outside of the country in the last 21 days: No Have you had contact with anyone from an Ebola affected area: No Have you been sick,other than usual withdrawal symptoms: No Do you have a fever: No - Review of Systems Constitutional: Loss of Appetite, Night Sweats, Changes in sleep, Weakness EENT: reports: Tearing, Nose Congestion Respiratory: reports: No Symptoms reported Cardiac: reports: Palpitations GI: reports: Diarrhea, Nausea, Poor Appetite, Abdominal cramping : reports: No Symptoms Reported Musculoskeletal: reports: Back Pain, Muscle Pain Integumentary: reports: Dryness Neuro: reports: Headache, Tremors Endocrine: reports: No Symptoms Reported Hematology: reports: No Symptoms Reported Psychiatric: reports: No Sypmtoms Reported, Judgement Intact, Mood/Affect Appropiate, Orientated x3, Anxious, Depressed Patient History - Patient Medical History Hx Asthma: Yes (on albuterol inhaler) Hx Chronic Obstructive Pulmonary Disease (COPD): No Hx Cancer: No Hx Cardiac Disorders: No Hx Congestive Heart Failure: No Hx Hypertension: Yes (on med) Hx Hypercholesterolemia: Yes (no medication) Hx Pacemaker: No HX Cerebrovascular Accident: No Hx Seizures: No Hx Dementia: No Hx Diabetes: Yes (NIDDM) Hx Gastrointestinal Disorders: No Hx Liver Disease: No Hx Genitourinary Disorders: No Hx Sexually Transmitted Disorders: Yes (gonorrhea) Hx Renal Disease (ESRD): No Hx Thyroid Disease: No Hx Human Immunodeficiency Virus (HIV): No (last 2015 negative) Hx Hepatitis C: Yes (treated) Hx Depression: Yes (anxiety) Hx Suicide Attempt: No Hx Bipolar Disorder: No Hx Schizophrenia: No Other Medical History: no suicidal,no homicidal - Patient Surgical History Past Surgical History: Yes Hx Neurologic Surgery: No Hx Cataract Extraction: No Hx Cardiac Surgery: No Hx Lung Surgery: No Hx Breast Surgery: No Hx Breast Biopsy: No Hx Abdominal Surgery: Yes (UMBILICAL HERNIA REPAIR 2016) Hx Appendectomy: No Hx Cholecystectomy: No Hx Genitourinary Surgery: No Hx Section: No Hx Orthopedic Surgery: Yes (fx, right elbow 2002) Anesthesia Reaction: No - PPD History Previous Implant?: Yes Documented Results: Negative w/proof Implanted On Prior [facility] Admission?: Yes Date: 02/23/18 Results: NEGATIVE PPD to be Administered?: No - Smoking Cessation Smoking history: Current every day smoker Have you smoked in the past 12 months: Yes Aproximately how many cigarettes per day: 8 Hx Chewing Tobacco Use: No Initiated information on smoking cessation: Yes 'Breaking Loose' booklet given: 07/21/18 - Substance & Tx. History Hx Alcohol Use: Yes Hx Substance Use: Yes Substance Use Type: Alcohol, Cocaine Hx Substance Use Treatment: Yes ([facility] 02/21/18 to 02/25/18) - Substances Abused Alcohol Route: Oral Frequency: Daily Amount used: 3 6 PACKS OF BEER (24 OUNCES), 4 NIPS OF GIN Age of first use: 19 Date of Last Use: 07/21/18 Cocaine Route: Inhalation Frequency: 1-2 times per week Amount used: $50 Age of first use: 19 Date of Last Use: 07/19/18 Family Disease History - Family Disease History Family Disease History: Other: Father (alcohol,), Mother () Admission Physical Exam BHS - Vital Signs Vital Signs: Vital Signs - 24 hr 07/21/18 09:15 Temperature 98 F Pulse Rate 104 H Respiratory 20 Rate Blood Pressure 144/87 - Physical General Appearance: Yes: Moderate Distress, Tremorous, Irritable, Sweating, Anxious HEENTM: Yes: Normal ENT Inspection, [place], Pharynx Normal Respiratory: Yes: Lungs Clear, Normal Breath Sounds, No Respiratory Distress Breast: Yes: Within Normal Limits Cardiology: Yes: Tachycardia Abdominal: Yes: Within Normal Limits, Normal Bowel Sounds, Non Tender, Soft Genitourinary: Yes: Within Normal Limits Back: Yes: Muscle Spasm Extremities: Yes: Tremors Neurological: Yes: senior oracle applications developer II-XII NML intact, Fully Oriented, Alert, Motor Strength 5/5 Integumentary: Yes: Within Normal Limits, Dry Lymphatic: Yes: Within Normal Limits - Diagnostic (1) Alcohol dependence with uncomplicated withdrawal Status: Acute (2) Cocaine dependence Status: Acute Qualifiers: Substance use status: uncomplicated Qualified Code(s): F14.20 - Cocaine dependence, uncomplicated (3) Essential hypertension Status: Chronic (4) Lower back pain Status: Acute Qualifiers: Chronicity: unspecified (5) Nicotine dependence Status: Acute Qualifiers: Nicotine product type: cigarettes Substance use status: in withdrawal Qualified Code(s): F17.213 - Nicotine dependence, cigarettes, with withdrawal (6) Arthritis of both knees Status: Chronic (7) DM2 (diabetes mellitus, type 2) Status: Chronic Qualifiers: Diabetes mellitus senior living insulin use: without senior living use Diabetes mellitus complication status: without complication Qualified Code(s): E11.9 - Type 2 diabetes mellitus without complications (8) Hepatitis C Status: Chronic Qualifiers: Viral hepatitis chronicity: chronic Hepatic coma status: without hepatic coma Qualified Code(s): B18.2 - Chronic viral hepatitis C (9) Syncope Status: Suspected Qualifiers: Syncope type: unspecified Qualified Code(s): R55 - Syncope and collapse (10) Asthma Status: Chronic Qualifiers: Asthma severity: mild Asthma persistence: intermittent Asthma complication type: with status asthmaticus Qualified Code(s): J45.22 - Mild intermittent asthma with status asthmaticus (11) H/O umbilical hernia repair Status: Acute (12) Fracture of right elbow Status: Acute Cleared for Admission [facility] - Detox or Rehab [facility] Level of Care: Medically Managed Detox Regimen/Protocol: Librium [facility] Breath Alcohol Content Breath Alcohol Content: 0 Urine Drug Screen - Results Drug Screen Negative: No Urine Drug Screen Results: AFTAB-Cocaine, BAR-Barbiturates
[2018-07-21] MEDS ORDERED: NICOTINE POLACRILEX 2 MG GUM BUC PRN (10:25)
[2018-07-21] MEDS ORDERED: ACETAMINOPHEN 325 MG TABLET (FP) PO PRN (10:25)
[2018-07-21] MEDS ORDERED: MAG HYDROX/AL HYDROX/SIMETH 30 ML UNIT-DOSE CUP PO PRN (10:25)
[2018-07-21] MEDS ORDERED: hydrOXYzine PAMOATE 50 MG CAPSULE (FP) PO PRN (10:25)
[2018-07-21] MEDS ORDERED: LOPERAMIDE HCL 2 MG CAPSULE PO PRN (10:25)
[2018-07-21] MEDS ORDERED: MAGNESIUM HYDROX 2400MG/30ML ORAL SUSPENSION 30 ML CUP PO PRN (10:25)
[2018-07-21] MEDS ORDERED: MENTHOL/PHENOL 1 EACH UD MM PRN (10:25)
[2018-07-21] MEDS ORDERED: guaiFENesin/D-METHORPHAN HB 10 ML UNIT-DOSE CUPS PO PRN (10:25)
[2018-07-21] MEDS ORDERED: MAGNESIUM CITRATE 300 ML BOTTLE PO PRN (10:25)
[2018-07-21] MEDS ORDERED: P-EPHED 60MG/TRIPROLIDI 2.5MG TABLET PO PRN (10:25)
[2018-07-21] MEDS ORDERED: chlordiazePOXIDE HCL 25 MG CAPSULE PO PRN (10:25)
[2018-07-21] MEDS ORDERED: ALBUTEROL SO4 8 GM HFA INHALER IH PRN (10:28)
--- NOTE | 2018-07-21 11:07 | CONSULT ---
[facility] Psychiatric Consult - Data Date of interview: 07/21/18 Admission source: [facility] Identifying data: This is a 58 years old male,single father of one, living with sister's family, on unemployment support, with no psychiatric hospitalization history, with alcohol and cocaine, nicotine dependence,seeking detox reporting withdrawal symptoms.Last detox 02/21/18 to 02/25/18. syncope alcohol related. history of hypertension and type 2 dm,non compliance. hepatitis c treated. nicotine dependence. anxiety,depression,insomnia. longest period of sobriety 1 year. also has history of asthma Substance Abuse History: Smoking Cessation. Smoking history: Current every day smoker. Have you smoked in the past 12 months: Yes. Aproximately how many cigarettes per day: 8. Hx Chewing Tobacco Use: No. Initiated information on smoking cessation: Yes. 'Breaking Loose' booklet given: 07/21/18. - Substance & Tx. History. Hx Alcohol Use: Yes. Hx Substance Use: Yes. Substance Use Type : Alcohol, Cocaine. Hx Substance Use Treatment: Yes ([facility] 02/21/18 to 02/25/18) . - Substances Abused. Alcohol. Route: Oral. Frequency: Daily. Amount used: 3 6 PACKS OF BEER (24 OUNCES), 4 NIPS OF GIN. Age of first use: 19. Date of Last Use: 07/21/18. Cocaine. Route: Inhalation. Frequency: 1-2 times per week. Amount used: $50. Age of first use: 19. Date of Last Use: Medical History: Syncope history, Both Knees arthritis, sthma, HTN, OBESITY, LBP , HepC+, DM-II, Psychiatric History: Patient reports history of anxiety and depression, denies psychiatric hospitalization history, denies taking medications prior to admission, denies suicidal and homicidal history. Physical/Sexual Abuse/Trauma History: Denies Additional Comment: Observation. Detox Unit Care Protocol Mental Status Exam - Mental Status Exam Alert and Oriented to: Person Cognitive Function: Fair Patient Appearance: Unkempt Mood: Anxious Affect: Mood Congruent Patient Behavior: Cooperative Speech Pattern: Excessive Voice Loudness: Normal Thought Process: Goal Oriented Thought Disorder: Being Controlled Hallucinations: Denies Suicidal Ideation: Denies Homicidal Ideation: Denies Insight/Judgement: Fair Sleep: Difficulty falling asleep Appetite: Weight gain Muscle strength/Tone: Normal Gait/Station: Normal Additional Comments: Observation. Detox Unit Care Protocol Psychiatric Findings - Problem List ([place] 1, 2,3) (1) Alcohol dependence with uncomplicated withdrawal Current Visit: No Status: Acute (2) Cocaine dependence Current Visit: No Status: Acute Qualifiers: Substance use status: uncomplicated Qualified Code(s): F14.20 - Cocaine dependence, uncomplicated (3) Nicotine dependence Current Visit: No Status: Acute Qualifiers: Nicotine product type: cigarettes Substance use status: in withdrawal Qualified Code(s): F17.213 - Nicotine dependence, cigarettes, with withdrawal (4) Substance induced mood disorder Current Visit: No Status: Suspected - Initial Treatment Plan Initial Treatment Plan: Observation. Detox Unit Care Protocol
[2018-07-21] MEDS: LISINOPRIL 20 MG TABLET (FP) PO SCH (12:05)
--- NOTE | 2018-07-21 15:09 | EKG ---
Test Reason : Blood Pressure : / mmHG Vent. Rate : 106 BPM Atrial Rate : 106 BPM P-R Int : 148 ms QRS Dur : 086 ms QT Int : 326 ms P-R-T Axes : 050 016 060 degrees QTc Int : 433 ms SINUS TACHYCARDIA POSSIBLE LEFT ATRIAL ENLARGEMENT BORDERLINE ECG WHEN COMPARED WITH ECG OF 21-FEB-2018 15:04, NO SIGNIFICANT CHANGE WAS FOUND Confirmed by ANISHA ECHEVERRIA MD ([id number]) on 07/21/2018 3:09:37 PM Referred By: Confirmed By:ANISHA ECHEVERRIA MD
[2018-07-21] MEDS: chlordiazePOXIDE HCL 25 MG CAPSULE PO SCH ×2 (17:23→22:13)
[2018-07-21 21:05] LABS: URINE APPEARANCE TURBID; URINE BILIRUBIN NEGATIVE (<2.0 mg/dL); URINE COLOR YELLOW; URINE GLUCOSE (UA) NEGATIVE (NEGATIVE); URINE KETONE NEGATIVE (NEGATIVE); URINE LEUK ESTERASE NEGATIVE (NEGATIVE); URINE NITRITE NEGATIVE (NEGATIVE); URINE PROTEIN 1+ (NEGATIVE)
[2018-07-21 21:13] LABS: URINE MUCUS MODERATE
[2018-07-21] MEDS ORDERED: MELATONIN 5 MG TABLETS PO PRN (22:00)
[2018-07-21] MEDS: THIAMINE HCL 100 MG TABLET (FP) PO SCH (22:12)
[2018-07-21] MEDS: ATORVASTATIN CA 20 MG TABLET (FP) PO SCH (22:12)
[2018-07-22] MEDS: chlordiazePOXIDE HCL 25 MG CAPSULE PO SCH ×4 (05:53→22:09)
[2018-07-22] MEDS: sitaGLIPtin PHOSPHATE 100 MG TABLET (FP) PO SCH (06:08)
[2018-07-22] MEDS: LISINOPRIL 20 MG TABLET (FP) PO SCH (10:08)
[2018-07-22] MEDS: PRENATAL VITAMINS W/ FOLIC ACID TABLET (FP) PO SCH (10:08)
[2018-07-22 10:40] LABS: MCH 30.9 pg (25.7-33.7); MEAN PLT VOLUME 8.6 fl (7.5-11.1); WHITE BLOOD COUNT 6.7 K/mm3 (4.0-10.0)
[2018-07-22 10:42] LABS: HEMATOCRIT 41.7 % (35.4-49); HEMOGLOBIN 13.8 GM/dL (11.7-16.9); MCHC 33.2 g/dl (32.0-35.9); MEAN CELL VOLUME 93.2 fl (80-96); PLATELET COUNT 370 K/MM3 (134-434); RBC 4.47 M/mm3 (4.00-5.60); RDW 13.9 % (11.9-15.9)
[2018-07-22 11:01] LABS: ALK PHOS 99 U/L (45-117); ANION GAP 13 MMOL/L (8-16); BILIRUBIN,TOTAL 0.5 mg/dL (0.2-1); BLOOD UREA NITROGEN 15 mg/dL (7-18); CALCIUM 9.3 mg/dL (8.5-10.1); CHLORIDE 104 mmol/L (98-107); CO2 21 mmol/L (21-32); CREATININE 1.2 mg/dL (0.55-1.3); GLUCOSE,RANDOM 157 mg/dL (74-106); POTASSIUM 4.3 mmol/L (3.5-5.1); SGOT/AST 30 U/L (15-37); SGPT/ALT 28 U/L (13-61); SODIUM 138 mmol/L (136-145); TOT PROT 8.1 g/dl (6.4-8.2)
[2018-07-22] MEDS ORDERED: FLU VACCINE QUAD 60 MCG/0.5 ML (MDV 18-19) IM ONE (12:00)
--- NOTE | 2018-07-22 14:06 | PN ---
S CIWA - CIWA Score Nausea/Vomitin-No Nausea/No Vomiting Muscle Tremors: None Anxiety: 2 Agitation: 2 Paroxysmal Sweats: 2 Orientation: 0-Oriented Tacttile Disturbances: 2-Mild Itch/Numbness/Burn Auditory Disturbances: 0-None Visual Disturbances: 0-None Headache: 0-None Present CIWA-Ar Total Score: 8 BHS Progress Note (SOAP) Subjective: PATIENT C/O ANXIETY, RESTLESSNESS, MILD NUMBNESS/TINGLING TO FEET AND SWEATING. Objective: 07/22/18 14:04 Laboratory Tests 07/21/18 07/21/18 07/21/18 09:54 14:37 16:55 WBC RBC Hgb Hct MCV MCH MCHC RDW Plt Count MPV Sodium Potassium Chloride Carbon Dioxide Anion Gap BUN Creatinine Creat Clearance w eGFR POC Glucometer 195 112 Random Glucose Calcium Total Bilirubin AST ALT Alkaline Phosphatase Total Protein Albumin Urine Color Yellow Urine Appearance Turbid Urine pH 5.0 Ur Specific [place] 1.026 Urine Protein 1+ H Urine Glucose (UA) Negative Urine Ketones Negative Urine Blood Negative Urine Nitrite Negative Urine Bilirubin Negative Urine Urobilinogen 2.0 Ur Leukocyte Esterase Negative Urine WBC (Auto) None Urine RBC (Auto) 10 Urine Mucus Moderate RPR Titer 07/22/18 07/22/18 07/22/18 05:40 05:40 05:40 WBC 6.7 RBC 4.47 Hgb 13.8 Hct 41.7 MCV 93.2 MCH 30.9 MCHC 33.2 RDW 13.9 Plt Count 370 MPV 8.6 Sodium 138 Potassium 4.3 Chloride 104 Carbon Dioxide 21 Anion Gap 13 BUN 15 Creatinine 1.2 Creat Clearance w eGFR > 60 POC Glucometer Random Glucose 157 H Calcium 9.3 Total Bilirubin 0.5 AST 30 ALT 28 Alkaline Phosphatase 99 Total Protein 8.1 Albumin 4.0 Urine Color Urine Appearance Urine pH Ur Specific [place] Urine Protein Urine Glucose (UA) Urine Ketones Urine Blood Urine Nitrite Urine Bilirubin Urine Urobilinogen Ur Leukocyte Esterase Urine WBC (Auto) Urine RBC (Auto) Urine Mucus RPR Titer Nonreactive 07/22/18 05:55 WBC RBC Hgb Hct MCV MCH MCHC RDW Plt Count MPV Sodium Potassium Chloride Carbon Dioxide Anion Gap BUN Creatinine Creat Clearance w eGFR POC Glucometer 158 Random Glucose Calcium Total Bilirubin AST ALT Alkaline Phosphatase Total Protein Albumin Urine Color Urine Appearance Urine pH Ur Specific [place] Urine Protein Urine Glucose (UA) Urine Ketones Urine Blood Urine Nitrite Urine Bilirubin Urine Urobilinogen Ur Leukocyte Esterase Urine WBC (Auto) Urine RBC (Auto) Urine Mucus RPR Titer Vital Signs Temperature 98.1 F 07/22/18 09:20 Pulse Rate 100 H 07/22/18 09:20 Respiratory Rate 18 07/22/18 09:20 Blood Pressure 152/93 07/22/18 09:20 O2 Sat by Pulse Oximetry (%) PE: SKIN WARM AND MOIST CAR S1S2 RESP CTA BL EXT FULL ROM, NO TREMORS 07/22/18 14:06 Assessment: 07/22/18 14:07 WITHDRAWAL SX Plan: CONTINUE DETOX ENCOURAGE ORAL FLUIDS CONTINUE TO MONITOR CLINICALLY
[2018-07-22] MEDS: THIAMINE HCL 100 MG TABLET (FP) PO SCH (22:09)
[2018-07-22] MEDS: ATORVASTATIN CA 20 MG TABLET (FP) PO SCH (22:09)
[2018-07-23] MEDS: chlordiazePOXIDE HCL 25 MG CAPSULE PO SCH ×2 (05:53→10:36)
[2018-07-23] MEDS: sitaGLIPtin PHOSPHATE 100 MG TABLET (FP) PO SCH (06:47)
[2018-07-23] MEDS ORDERED: cloNIDine HCL 0.1 MG TABLET PO ONE (07:42)
[2018-07-23] MEDS: LISINOPRIL 20 MG TABLET (FP) PO SCH (10:36)
[2018-07-23] MEDS: PRENATAL VITAMINS W/ FOLIC ACID TABLET (FP) PO SCH (10:36)
--- NOTE | 2018-07-23 11:20 | PN ---
S CIWA - CIWA Score Nausea/Vomitin-No Nausea/No Vomiting Muscle Tremors: None Anxiety: 2 Agitation: 2 Paroxysmal Sweats: No Perspiration Orientation: 0-Oriented Tacttile Disturbances: 2-Mild Itch/Numbness/Burn Auditory Disturbances: 0-None Visual Disturbances: 0-None Headache: 0-None Present CIWA-Ar Total Score: 6 BHS Progress Note (SOAP) Subjective: PATIENT C/O NUMBNESS/TINGLING/BURNING TO FEET, ANXIETY AND INTERMITTENT RESTLESSNESS AND RIGHT KNEE/ANKLE DISCOMFORT. Objective: 07/23/18 11:13 Vital Signs Temperature 97.5 F L 07/23/18 09:38 Pulse Rate 91 H 07/23/18 09:38 Respiratory Rate 18 07/23/18 09:38 Blood Pressure 154/94 07/23/18 09:38 O2 Sat by Pulse Oximetry (%) Laboratory Tests 07/21/18 07/21/18 07/21/18 09:54 14:37 16:55 WBC RBC Hgb Hct MCV MCH MCHC RDW Plt Count MPV Sodium Potassium Chloride Carbon Dioxide Anion Gap BUN Creatinine Creat Clearance w eGFR POC Glucometer 195 112 Random Glucose Calcium Total Bilirubin AST ALT Alkaline Phosphatase Total Protein Albumin Urine Color Yellow Urine Appearance Turbid Urine pH 5.0 Ur Specific [place] 1.026 Urine Protein 1+ H Urine Glucose (UA) Negative Urine Ketones Negative Urine Blood Negative Urine Nitrite Negative Urine Bilirubin Negative Urine Urobilinogen 2.0 Ur Leukocyte Esterase Negative Urine WBC (Auto) None Urine RBC (Auto) 10 Urine Mucus Moderate RPR Titer 07/22/18 07/22/18 07/22/18 05:40 05:40 05:40 WBC 6.7 RBC 4.47 Hgb 13.8 Hct 41.7 MCV 93.2 MCH 30.9 MCHC 33.2 RDW 13.9 Plt Count 370 MPV 8.6 Sodium 138 Potassium 4.3 Chloride 104 Carbon Dioxide 21 Anion Gap 13 BUN 15 Creatinine 1.2 Creat Clearance w eGFR > 60 POC Glucometer Random Glucose 157 H Calcium 9.3 Total Bilirubin 0.5 AST 30 ALT 28 Alkaline Phosphatase 99 Total Protein 8.1 Albumin 4.0 Urine Color Urine Appearance Urine pH Ur Specific [place] Urine Protein Urine Glucose (UA) Urine Ketones Urine Blood Urine Nitrite Urine Bilirubin Urine Urobilinogen Ur Leukocyte Esterase Urine WBC (Auto) Urine RBC (Auto) Urine Mucus RPR Titer Nonreactive 07/22/18 07/23/18 05:55 05:54 WBC RBC Hgb Hct MCV MCH MCHC RDW Plt Count MPV Sodium Potassium Chloride Carbon Dioxide Anion Gap BUN Creatinine Creat Clearance w eGFR POC Glucometer 158 140 Random Glucose Calcium Total Bilirubin AST ALT Alkaline Phosphatase Total Protein Albumin Urine Color Urine Appearance Urine pH Ur Specific [place] Urine Protein Urine Glucose (UA) Urine Ketones Urine Blood Urine Nitrite Urine Bilirubin Urine Urobilinogen Ur Leukocyte Esterase Urine WBC (Auto) Urine RBC (Auto) Urine Mucus RPR Titer PE: SKIN WARM AND DRY ALERT AND ORIENTED X 3 AMB AD VANESSA BLE PEDAL EDEMA, FULL ROM Assessment: 07/23/18 11:20 WITHDRAWAL SYNDROME RIGHT KNEE/ANKLE PAIN 07/23/18 11:22 Plan: CONTINUE DETOX REGIMEN ENCOURAGE ORAL FLUIDS ADD BENGAY OINTMENT TP BID CONTINUE TO MONITOR CLINICALLY
[2018-07-23] MEDS: METHYL SALICYLATE/MENTHOL OINT 30 GM TUBE TP SCH ×2 (13:00→23:48)
[2018-07-23] MEDS: chlordiazePOXIDE 5 MG CAPSULE PO SCH ×2 (18:00→22:35)
[2018-07-23] MEDS: IBUPROFEN 400 MG TABLET (FP) PO PRN (19:03)
[2018-07-23] MEDS: ATORVASTATIN CA 20 MG TABLET (FP) PO SCH (22:35)
[2018-07-23] MEDS: THIAMINE HCL 100 MG TABLET (FP) PO SCH (23:48)
[2018-07-24] MEDS: chlordiazePOXIDE 5 MG CAPSULE PO SCH ×2 (05:15→10:29)
[2018-07-24] MEDS: IBUPROFEN 400 MG TABLET (FP) PO PRN (05:19)
[2018-07-24] MEDS: sitaGLIPtin PHOSPHATE 100 MG TABLET (FP) PO SCH (07:15)
[2018-07-24] MEDS ORDERED: amLODIPine BESYLATE 5 MG TABLET (FP) ONE (09:55)
[2018-07-24] MEDS: LISINOPRIL 20 MG TABLET (FP) PO SCH (10:28)
[2018-07-24] MEDS: METHYL SALICYLATE/MENTHOL OINT 30 GM TUBE TP SCH ×2 (10:28→23:07)
[2018-07-24] MEDS: PRENATAL VITAMINS W/ FOLIC ACID TABLET (FP) PO SCH (10:29)
[2018-07-24] MEDS: amLODIPine BESYLATE 5 MG TABLET (FP) PO SCH (10:29)
--- NOTE | 2018-07-24 10:32 | PN ---
BHS Progress Note (SOAP) Subjective: feeling better less sweat no tremor sleep better at night social with peers in day room Objective: 07/24/18 10:31 Vital Signs Temperature 97.7 F 07/24/18 09:28 Pulse Rate 85 07/24/18 09:28 Respiratory Rate 18 07/24/18 09:28 Blood Pressure 136/84 07/24/18 09:28 O2 Sat by Pulse Oximetry (%) Laboratory Last Values WBC 6.7 K/mm3 (4.0-10.0) 07/22/18 05:40 RBC 4.47 M/mm3 (4.00-5.60) 07/22/18 05:40 Hgb 13.8 GM/dL (11.7-16.9) 07/22/18 05:40 Hct 41.7 % (35.4-49) 07/22/18 05:40 MCV 93.2 fl (80-96) 07/22/18 05:40 MCH 30.9 pg (25.7-33.7) 07/22/18 05:40 MCHC 33.2 g/dl (32.0-35.9) 07/22/18 05:40 RDW 13.9 % (11.9-15.9) 07/22/18 05:40 Plt Count 370 K/MM3 (134-434) 07/22/18 05:40 MPV 8.6 fl (7.5-11.1) 07/22/18 05:40 Sodium 138 mmol/L (136-145) 07/22/18 05:40 Potassium 4.3 mmol/L (3.5-5.1) 07/22/18 05:40 Chloride 104 mmol/L (98-107) 07/22/18 05:40 Carbon Dioxide 21 mmol/L (21-32) 07/22/18 05:40 Anion Gap 13 MMOL/L (8-16) 07/22/18 05:40 BUN 15 mg/dL (7-18) 07/22/18 05:40 Creatinine 1.2 mg/dL (0.55-1.3) 07/22/18 05:40 Creat Clearance w eGFR > 60 (>60) 07/22/18 05:40 POC Glucometer 213 UNITS (80-120) 07/24/18 05:17 Random Glucose 157 mg/dL (74-106) H 07/22/18 05:40 Calcium 9.3 mg/dL (8.5-10.1) 07/22/18 05:40 Total Bilirubin 0.5 mg/dL (0.2-1) 07/22/18 05:40 AST 30 U/L (15-37) 07/22/18 05:40 ALT 28 U/L (13-61) 07/22/18 05:40 Alkaline Phosphatase 99 U/L (45-117) 07/22/18 05:40 Total Protein 8.1 g/dl (6.4-8.2) 07/22/18 05:40 Albumin 4.0 g/dl (3.4-5.0) 07/22/18 05:40 Urine Color Yellow 07/21/18 14:37 Urine Appearance Turbid 07/21/18 14:37 Urine pH 5.0 (5.0-8.0) 07/21/18 14:37 Ur Specific [place] 1.026 (1.010-1.035) 07/21/18 14:37 Urine Protein 1+ (NEGATIVE) H 07/21/18 14:37 Urine Glucose (UA) Negative (NEGATIVE) 07/21/18 14:37 Urine Ketones Negative (NEGATIVE) 07/21/18 14:37 Urine Blood Negative (NEGATIVE) 07/21/18 14:37 Urine Nitrite Negative (NEGATIVE) 07/21/18 14:37 Urine Bilirubin Negative (<2.0 mg/dL) 07/21/18 14:37 Urine Urobilinogen 2.0 mg/dL (0.2-1.0) 07/21/18 14:37 Ur Leukocyte Esterase Negative (NEGATIVE) 07/21/18 14:37 Urine WBC (Auto) None /hpf (3-5) 07/21/18 14:37 Urine RBC (Auto) 10 /hpf (0-3) 07/21/18 14:37 Urine Mucus Moderate 07/21/18 14:37 RPR Titer Nonreactive (NONREACTIVE) 07/22/18 05:40 lab noted Assessment: 07/24/18 10:31 mild withdrawal sx Plan: medically supervised detox
[2018-07-24] MEDS: chlordiazePOXIDE HCL 10 MG CAPSULE PO SCH ×2 (17:51→22:09)
[2018-07-24] MEDS: THIAMINE HCL 100 MG TABLET (FP) PO SCH (22:09)
[2018-07-24] MEDS: ATORVASTATIN CA 20 MG TABLET (FP) PO SCH (22:09)
[2018-07-25] MEDS: chlordiazePOXIDE HCL 10 MG CAPSULE PO SCH ×2 (05:48→10:13)
[2018-07-25] MEDS: sitaGLIPtin PHOSPHATE 100 MG TABLET (FP) PO SCH (06:58)
--- NOTE | 2018-07-25 09:59 | DS ---
[facility] Detox Discharge Summary Admission Date: 07/21/18 Discharge Date: 07/25/18 - History Present History: Alcohol Dependence Additional Comments: 58 years old male admitted on 07/21/18 for alcohol withdrawal sx completed alcohol detox regimen tolerated well denies alcohol withdrawal sx alert oriented x 3 no acute distress aftercare [facility] - Physical Exam Results Vital Signs: Vital Signs Temperature 98.6 F 07/25/18 09:18 Pulse Rate 99 H 07/25/18 09:18 Respiratory Rate 18 07/25/18 09:18 Blood Pressure 146/89 07/25/18 09:18 O2 Sat by Pulse Oximetry (%) Pertinent Admission Physical Exam Findings: alcohol withdrawal sx Vital Signs Temperature 98.6 F 07/25/18 09:18 Pulse Rate 99 H 07/25/18 09:18 Respiratory Rate 18 07/25/18 09:18 Blood Pressure 146/89 07/25/18 09:18 O2 Sat by Pulse Oximetry (%) Laboratory Last Values WBC 6.7 K/mm3 (4.0-10.0) 07/22/18 05:40 RBC 4.47 M/mm3 (4.00-5.60) 07/22/18 05:40 Hgb 13.8 GM/dL (11.7-16.9) 07/22/18 05:40 Hct 41.7 % (35.4-49) 07/22/18 05:40 MCV 93.2 fl (80-96) 07/22/18 05:40 MCH 30.9 pg (25.7-33.7) 07/22/18 05:40 MCHC 33.2 g/dl (32.0-35.9) 07/22/18 05:40 RDW 13.9 % (11.9-15.9) 07/22/18 05:40 Plt Count 370 K/MM3 (134-434) 07/22/18 05:40 MPV 8.6 fl (7.5-11.1) 07/22/18 05:40 Sodium 138 mmol/L (136-145) 07/22/18 05:40 Potassium 4.3 mmol/L (3.5-5.1) 07/22/18 05:40 Chloride 104 mmol/L (98-107) 07/22/18 05:40 Carbon Dioxide 21 mmol/L (21-32) 07/22/18 05:40 Anion Gap 13 MMOL/L (8-16) 07/22/18 05:40 BUN 15 mg/dL (7-18) 07/22/18 05:40 Creatinine 1.2 mg/dL (0.55-1.3) 07/22/18 05:40 Creat Clearance w eGFR > 60 (>60) 07/22/18 05:40 POC Glucometer 189 UNITS (80-120) 07/25/18 05:46 Random Glucose 157 mg/dL (74-106) H 07/22/18 05:40 Calcium 9.3 mg/dL (8.5-10.1) 07/22/18 05:40 Total Bilirubin 0.5 mg/dL (0.2-1) 07/22/18 05:40 AST 30 U/L (15-37) 07/22/18 05:40 ALT 28 U/L (13-61) 07/22/18 05:40 Alkaline Phosphatase 99 U/L (45-117) 07/22/18 05:40 Total Protein 8.1 g/dl (6.4-8.2) 07/22/18 05:40 Albumin 4.0 g/dl (3.4-5.0) 07/22/18 05:40 Urine Color Yellow 07/21/18 14:37 Urine Appearance Turbid 07/21/18 14:37 Urine pH 5.0 (5.0-8.0) 07/21/18 14:37 Ur Specific Stephenson 1.026 (1.010-1.035) 07/21/18 14:37 Urine Protein 1+ (NEGATIVE) H 07/21/18 14:37 Urine Glucose (UA) Negative (NEGATIVE) 07/21/18 14:37 Urine Ketones Negative (NEGATIVE) 07/21/18 14:37 Urine Blood Negative (NEGATIVE) 07/21/18 14:37 Urine Nitrite Negative (NEGATIVE) 07/21/18 14:37 Urine Bilirubin Negative (<2.0 mg/dL) 07/21/18 14:37 Urine Urobilinogen 2.0 mg/dL (0.2-1.0) 07/21/18 14:37 Ur Leukocyte Esterase Negative (NEGATIVE) 07/21/18 14:37 Urine WBC (Auto) None /hpf (3-5) 07/21/18 14:37 Urine RBC (Auto) 10 /hpf (0-3) 07/21/18 14:37 Urine Mucus Moderate 07/21/18 14:37 RPR Titer Nonreactive (NONREACTIVE) 07/22/18 05:40 lab noted - Treatment Hospital Course: Detox Protocol Followed, Detoxed Safely, Responded well, Discharged Condition Good, Rehab Referral Accepted Patient has Accepted [facility] Referral [facility] - Medication Discharge Medications: Ambulatory Orders Albuterol Sulfate Inhaler - [Ventolin HFA Inhaler -] 1 - 2 inh PO Q4H PRN #1 inhaler 07/24/18 Amlodipine Besylate [Norvasc -] 5 mg PO DAILY #14 tablet 07/24/18 Atorvastatin Ca [Lipitor] 20 mg PO HS #14 tablet 07/24/18 Lisinopril [Prinivil -] 40 mg PO DAILY #14 tablet 07/24/18 Metformin HCl [Metformin HCl ER] 1,000 mg PO DAILY #30 tab.er.24 07/24/18 Sitagliptin Phosphate [Januvia] 100 mg PO DAILY #14 tablet 07/24/18 - Diagnosis (1) Alcohol dependence with uncomplicated withdrawal Current Visit: Yes Status: Acute (2) Asthma Current Visit: Yes Status: Chronic Qualifiers: Asthma severity: mild Asthma persistence: intermittent Asthma complication type: with status asthmaticus Qualified Code(s): J45.22 - Mild intermittent asthma with status asthmaticus (3) Essential hypertension Current Visit: Yes Status: Chronic (4) Nicotine dependence Current Visit: Yes Status: Acute Qualifiers: Nicotine product type: cigarettes Substance use status: in withdrawal Qualified Code(s): F17.213 - Nicotine dependence, cigarettes, with withdrawal (5) DM2 (diabetes mellitus, type 2) Current Visit: Yes Status: Chronic Qualifiers: Diabetes mellitus apiarist insulin use: without apiarist use Diabetes mellitus complication status: without complication Qualified Code(s): E11.9 - Type 2 diabetes mellitus without complications (6) Hepatitis C Current Visit: No Status: Chronic Qualifiers: Viral hepatitis chronicity: chronic Hepatic coma status: without hepatic coma Qualified Code(s): B18.2 - Chronic viral hepatitis C (7) Substance induced mood disorder Current Visit: Yes Status: Suspected - AMA Did Patient Leave Against Medical Advice: No
[2018-07-25] MEDS: PRENATAL VITAMINS W/ FOLIC ACID TABLET (FP) PO SCH (10:11)
[2018-07-25] MEDS: LISINOPRIL 20 MG TABLET (FP) PO SCH (10:11)
[2018-07-25] MEDS: METHYL SALICYLATE/MENTHOL OINT 30 GM TUBE TP SCH (10:11)
[2018-07-25] MEDS: amLODIPine BESYLATE 5 MG TABLET (FP) PO SCH (10:11)
[2018-07-25 13:03] VITALS: BP 132/90; PULSE 107; TEMP 98.1
== END 2018-07-25 12:50 | disposition home or self-care (01) | DRG 774 ==
LOC: YASAS 08:40 → Y6N 10:46
PROC: HZ2ZZZZ Detoxification Services for Substance Abuse Treatment (ICD-10-PCS; principal; 2018-07-21)
DX: F10.230 Alcohol dependence with withdrawal, uncomplicated (principal); F14.20 Cocaine dependence, uncomplicated; F17.213 Nicotine dependence, cigarettes, with withdrawal; F19.24 Other psychoactive substance dependence with psychoactive substance-induced mood disorder; I10 Essential (primary) hypertension; J45.22 Mild intermittent asthma with status asthmaticus; E11.9 Type 2 diabetes mellitus without complications; B18.2 Chronic viral hepatitis C; R00.0 Tachycardia, unspecified; M25.561 Pain in right knee; M25.571 Pain in right ankle and joints of right foot; M13.862 Other specified arthritis, left knee; M13.861 Other specified arthritis, right knee; M54.5 Low back pain; E66.9 Obesity, unspecified; Z68.38 Body mass index [BMI] 38.0-38.9, adult; Z87.438 Personal history of other diseases of male genital organs; Z79.84 Long term (current) use of oral hypoglycemic drugs
CPT/HCPCS: 36415; 80053; 81003; 81015; 82962; 85027; 86593; 90688; 93005; 93010; G0008; J0735

== ENCOUNTER 2020-06-28 10:00 | Inpatient (IN) | payer OTHER ==
--- OUTSIDE RECORDS SUMMARY | 2020-06-28 10:06 | XMS ---
:1960 Author Organization [facility] Support Name Relationship Address Phone UE Unavailable Unavailable Unavailable JUAN J MORALES SISTER [address] [place] [address] Re-disclosure Warning The records that you are about to access may contain information from federally- assisted alcohol or drug abuse programs. If such information is present, then the following federally mandated warning applies: This information has been disclosed to you from records protected by federal confidentiality rules (42 CFR part 2). The federal rules prohibit you from making any further disclosure of this information unless further disclosure is expressly permitted by the written consent of the person to whom it pertains or as otherwise permitted by 42 CFR part 2. A general authorization for the release of medical or other information is NOT sufficient for this purpose. The Federal rules restrict any use of the information to criminally investigate or prosecute any alcohol or drug abuse patient.The records that you are about to access may contain highly sensitive health information, the redisclosure of which is protected by Article 27-F of the [facility] Public Health law. If you continue you may haveaccess to information: Regarding HIV / AIDS; Provided by facilities licensed or operated by the [facility] Office of Mental Health; or Provided by the [facility] Office for People With Developmental Disabilities. If such information is present, then the following [facility] mandated warning applies: This information has been disclosed to you from confidential records which are protected by state law. State law prohibits you from making any further disclosure of this information without the specific written consent of the person to whom it pertains, or as otherwise permitted by law. Any unauthorized further disclosure in violation of state law may result in a fine or halfway sentence or both. A general authorization for the release of medical or other information is NOT sufficient authorization for further disclosure. Insurance Providers Payer name Policy type Policy ID Covered Covered republican's Policy P shwetha / Coverage republican ID relationship to Garcia [facility] ormation type garcia [facility] [id number] FIRST
--- NOTE | 2020-06-28 10:21 | BHS.RME ---
Substance Use & Tx History - Substance Use History Alcohol Substance amount: 7 beers 16 oz + 2 nips baccardi Frequency of use: Daily Substance route: Oral Date of Last Use: 06/27/20 (started age 19) Cocaine-Crack Substance amount: 5 bags Frequency of use: Daily Substance route: Smoking Date of Last Use: 06/27/20 (started age 46) Nicotine Substance amount: 10 ciggs Physical/Psych/Mental Status - Behavior General Behavior: Increased activity (restlessness, agitation) Eye Contact: Normal - Cooperativeness Cooperativeness: Cooperative - Thinking Thought Processes: Tight, Logical, Goal Directed - Physical Health Problems Is patient presently having any pain?: No Does patient presently have any injuries (include location): No Does patient currently have a fever: No Is patient : No CIWA Nausea/Vomitin Muscle Tremors: 1-None Visible, but [place] Anxiety: 3 Agitation: 3 Paroxysmal Sweats: 4-Forehead w/Sweat Beads Orientation: 1-Uncertain about Date Tacttile Disturbances: 1-Very Mild Itch/Numbness Auditory Disturbances: 0-None Visual Disturbances: 0-None Headache: 3-Moderate CIWA-Ar Total Score: 18
[2020-06-28 10:39] VITALS: BMI 40.1
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
[2020-06-28] MEDS ORDERED: MAG HYDROX/AL HYDROX/SIMETH 30 ML UNIT-DOSE CUP PO PRN (11:14)
[2020-06-28] MEDS ORDERED: BISMUTH SUBSALICYLATE 262 MG/15 ML BTL PO PRN (11:14)
[2020-06-28] MEDS ORDERED: NICOTINE POLACRILEX 2 MG GUM BUC PRN (11:14)
[2020-06-28] MEDS ORDERED: MAGNESIUM CITRATE 300 ML BOTTLE PO PRN (11:14)
[2020-06-28] MEDS ORDERED: ACETAMINOPHEN 325 MG TABLET (FP) PO PRN ×2 (11:14)
[2020-06-28] MEDS ORDERED: MAGNESIUM HYDROX 2400MG/30ML ORAL SUSPENSION 30 ML CUP PO PRN (11:14)
[2020-06-28] MEDS ORDERED: METHOCARBAMOL 500 MG TABLET PO PRN (11:14)
[2020-06-28] MEDS ORDERED: chlordiazePOXIDE HCL 25 MG CAPSULE PO PRN (11:14)
[2020-06-28] MEDS ORDERED: MENTHOL/PHENOL 1 EACH UD MM PRN (11:14)
[2020-06-28] MEDS ORDERED: ONDANSETRON *ODT* 4 MG TABLET SL PRN (11:14)
[2020-06-28] MEDS ORDERED: ALBUTEROL SO4 HFA INHALER IH PRN (11:16)
--- OUTSIDE RECORDS SUMMARY | 2020-06-28 11:50 | XMS ---
:1960 Author Organization [facility] Support Name Relationship Address Phone UE Unavailable Unavailable Unavailable JUAN J MORALES SISTER [address] [place] [address] Re-disclosure Warning The records that you are [...] is protected by Article 27-F of the [facility] Public Health law. If you continue you may haveaccess to information: Regarding HIV / AIDS; Provided by facilities licensed or operated by the [facility] Office of Mental Health; or Provided by the [facility] Office for People With Developmental Disabilities. If such information is present, then the following [facility] mandated warning applies: This information has been [...] law may result in a fine or fpc sentence or both. A general authorization for the release of medical or other information is NOT sufficient authorization for further disclosure. Insurance Providers Payer name Policy type Policy ID Covered Covered libertarian's Policy P shwetha / Coverage libertarian ID relationship to Garcia [facility] ormation type garcia [facility] [id number] FIRST
[2020-06-28] MEDS: chlordiazePOXIDE HCL 25 MG CAPSULE PO SCH ×3 (13:41→22:17)
[2020-06-28] MEDS: amLODIPine BESYLATE 5 MG TABLET (FP) PO SCH (13:41)
[2020-06-28] MEDS: LISINOPRIL 20 MG TABLET PO SCH (13:41)
[2020-06-28] MEDS: PRENATAL VITAMINS W/ FOLIC ACID TABLET (FP) PO SCH (13:43)
[2020-06-28] MEDS: NICOTINE 7 MG/24 HOURS TOPICAL PATCH TD SCH (13:43)
[2020-06-28] MEDS: hydrOXYzine PAMOATE 25 MG CAPSULE (FP) PO SCH ×3 (13:44→22:17)
[2020-06-28 14:57] LABS: HEMATOCRIT 40.4 % (35.4-49); HEMOGLOBIN 13.6 GM/dL (11.7-16.9); MCH 31.8 pg (25.7-33.7); MCHC 33.7 g/dl (32.0-35.9); MEAN CELL VOLUME 94.4 fl (80-96); MEAN PLT VOLUME 8.3 fl (7.5-11.1); PLATELET COUNT 338 K/MM3 (134-434); RBC 4.28 M/mm3 (4.00-5.60); RDW 13.3 % (11.9-15.9); WHITE BLOOD COUNT 7.3 K/mm3 (4.0-10.0)
[2020-06-28 15:11] LABS: ALBUMIN 4.1 g/dl (3.4-5.0); BLOOD UREA NITROGEN 16.8 mg/dL (7-18); CALCIUM 8.8 mg/dL (8.5-10.1); CREATININE 0.8 mg/dL (0.55-1.3); POTASSIUM 4.3 mmol/L (3.5-5.1)
[2020-06-28 15:12] LABS: BILIRUBIN,TOTAL 0.4 mg/dL (0.2-1)
--- NOTE | 2020-06-28 15:51 | CONSULT ---
[facility] Psychiatric Consult - Data Date of interview: 06/28/20 Admission source: [facility] Identifying data: Patient is a 60 year old single male, father of one, retired, homeless, and is financially supported with disability benefits. This is one of multiple admissions for patient. Patient admitted to for alcohol and cocaine dependence. Substance Abuse History: Substance Use History. Alcohol. Substance amount: 7 beers 16 oz + 2 nips baccardi. Frequency of use: Daily. Substance route: Oral. Date of Last Use: 06/27/20 (started age 19). 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 Cocaine-Crack. Substance amount: 5 bags. Frequency of use: Daily. Substance route: Smoking. Date of Last Use: 06/27/20 (started age 46). Nicotine. Substance amount: 10 ciggs Medical History: Asthma, hypertension, diabetes. Psychiatric History: Mr. Oates reports history of one psychiatric hospitalization approximately 7 years ago after endorsing auditory hallucinations secondary to drug use. Mr. Oates's next psychiatric contact was in 2019 while receiving treatment at [facility]. Diagnosis of Depression and anxiety disorder. Patient states that he continues to receive psychiatric treatment via telepsych by the psychiatrist at [facility] and is prescribed abilify 10mg + lexapro 10mg + buspar 15mg BID + Remeron 15mg HS. History of one suicide attempt by jumping out the window when he was a teenager. At present patient reports feeling sad. Physical/Sexual Abuse/Trauma History: denies. Mental Status Exam - Mental Status Exam Alert and Oriented to: Time, Place, Person Cognitive Function: Good Patient Appearance: Well Groomed Mood: Withdrawn Affect: Mood Congruent Patient Behavior: Appropriate, Cooperative Speech Pattern: Appropriate Voice Loudness: Normal Thought Process: Goal Oriented Thought Disorder: Not Present Hallucinations: Denies Suicidal Ideation: Denies Homicidal Ideation: Denies Insight/Judgement: Poor Sleep: Poorly Appetite: Fair Muscle strength/Tone: Normal Gait/Station: Normal Psychiatric Findings - Problem List ([place] 1, 2,3) (1) History of depression Current Visit: Yes Status: Chronic (2) Alcohol dependence with uncomplicated withdrawal Current Visit: Yes Status: Acute (3) Cocaine dependence Current Visit: Yes Status: Acute Qualifiers: Substance use status: uncomplicated Qualified Code(s): F14.20 - Cocaine dependence, uncomplicated (4) Anxiety disorder Current Visit: Yes Status: Chronic (5) Substance induced mood disorder Current Visit: Yes Status: Acute - Initial Treatment Plan Initial Treatment Plan: Psychoeducation provided. Rehab in progress. Will order Lexapro 10mg daily + Abilify 10mg + Buspar 15mg BID + Remeron 15mg HS. Benefits and side effects discussed. Verbal consent given.
[2020-06-28] MEDS: ATORVASTATIN CA 20 MG TABLET (FP) PO SCH (22:17)
[2020-06-28] MEDS: busPIRone HCL 10 MG TABLET (FP) PO SCH (22:17)
[2020-06-28] MEDS: MELATONIN 5 MG TABLETS PO SCH (22:17)
[2020-06-28] MEDS: MIRTAZAPINE 15 MG TABLET (FP) PO SCH (22:17)
[2020-06-28] MEDS: THIAMINE HCL 100 MG TABLET (FP) PO SCH (22:18)
[2020-06-29] MEDS: hydrOXYzine PAMOATE 25 MG CAPSULE (FP) PO SCH ×5 (05:24→22:35)
[2020-06-29] MEDS: chlordiazePOXIDE HCL 25 MG CAPSULE PO SCH ×4 (05:24→22:35)
[2020-06-29] MEDS: amLODIPine BESYLATE 5 MG TABLET (FP) PO SCH (10:14)
[2020-06-29] MEDS: busPIRone HCL 10 MG TABLET (FP) PO SCH ×2 (10:14→22:34)
[2020-06-29] MEDS: LISINOPRIL 20 MG TABLET PO SCH (10:14)
[2020-06-29] MEDS: PRENATAL VITAMINS W/ FOLIC ACID TABLET (FP) PO SCH (10:15)
[2020-06-29] MEDS: ESCITALOPRAM OXALATE 10 MG TABLET PO SCH (10:15)
[2020-06-29] MEDS: NICOTINE 7 MG/24 HOURS TOPICAL PATCH TD SCH (10:17)
--- NOTE | 2020-06-29 11:18 | PN ---
S CIWA - CIWA Score Nausea/Vomitin-No Nausea/No Vomiting Muscle Tremors: 2 Anxiety: 3 Agitation: 0-Normal Activity Paroxysmal Sweats: 3 Orientation: 0-Oriented Tacttile Disturbances: 0-None Auditory Disturbances: 0-None Visual Disturbances: 0-None Headache: 2-Mild CIWA-Ar Total Score: 10 BHS Progress Note (SOAP) Subjective: c/o headache, shakes, sweats, and anxiety. Objective: 06/29/20 11:17 Vital Signs 06/29/20 06/29/20 05:20 08:53 Temperature 97 F L 97.3 F L Pulse Rate 80 94 H Respiratory 20 20 Rate Blood Pressure 132/88 158/91 O2 Sat by Pulse 95 Oximetry (%) Laboratory Last Values WBC 7.3 K/mm3 (4.0-10.0) 06/28/20 11:20 RBC 4.28 M/mm3 (4.00-5.60) 06/28/20 11:20 Hgb 13.6 GM/dL (11.7-16.9) 06/28/20 11:20 Hct 40.4 % (35.4-49) 06/28/20 11:20 MCV 94.4 fl (80-96) 06/28/20 11:20 MCH 31.8 pg (25.7-33.7) 06/28/20 11:20 MCHC 33.7 g/dl (32.0-35.9) 06/28/20 11:20 RDW 13.3 % (11.9-15.9) 06/28/20 11:20 Plt Count 338 K/MM3 (134-434) 06/28/20 11:20 MPV 8.3 fl (7.5-11.1) 06/28/20 11:20 Sodium 138 mmol/L (136-145) 06/28/20 11:20 Potassium 4.3 mmol/L (3.5-5.1) 06/28/20 11:20 Chloride 105 mmol/L (98-107) 06/28/20 11:20 Carbon Dioxide 25 mmol/L (21-32) 06/28/20 11:20 Anion Gap 9 MMOL/L (8-16) 06/28/20 11:20 BUN 16.8 mg/dL (7-18) 06/28/20 11:20 Creatinine 0.8 mg/dL (0.55-1.3) 06/28/20 11:20 Est GFR (CKD-EPI)AfAm 113.33 06/28/20 11:20 Est GFR (CKD-EPI)NonAf 97.78 06/28/20 11:20 POC Glucometer 200 UNITS (80-120) 06/29/20 05:26 Random Glucose 188 mg/dL (74-106) H 06/28/20 11:20 Calcium 8.8 mg/dL (8.5-10.1) 06/28/20 11:20 Total Bilirubin 0.4 mg/dL (0.2-1) 06/28/20 11:20 AST 24 U/L (15-37) 06/28/20 11:20 ALT 28 U/L (13-61) 06/28/20 11:20 Alkaline Phosphatase 101 U/L (45-117) 06/28/20 11:20 Total Protein 8.0 g/dl (6.4-8.2) 06/28/20 11:20 Albumin 4.1 g/dl (3.4-5.0) 06/28/20 11:20 Syphilis Serology Non-reactive (NONREACTIVE) 06/28/20 11:20 COVID-19 (YAHAIRA) Not detected (Not Detected) 06/28/20 13:05 Labs noted. Assessment: 06/29/20 11:17 AOX3, in no acute respiratory distress. Full ROM, ambulating in the unit. Withdrawal symptoms. Plan: continue detox.
[2020-06-29] MEDS: ARIPiprazole 10 MG TABLET PO SCH (13:35)
[2020-06-29] MEDS: MIRTAZAPINE 15 MG TABLET (FP) PO SCH (22:34)
[2020-06-29] MEDS: ATORVASTATIN CA 20 MG TABLET (FP) PO SCH (22:34)
[2020-06-29] MEDS: MELATONIN 5 MG TABLETS PO SCH (22:34)
[2020-06-29] MEDS: THIAMINE HCL 100 MG TABLET (FP) PO SCH (22:35)
[2020-06-30] MEDS: chlordiazePOXIDE HCL 25 MG CAPSULE PO SCH ×4 (05:52→22:16)
[2020-06-30] MEDS: hydrOXYzine PAMOATE 25 MG CAPSULE (FP) PO SCH ×5 (05:52→22:15)
[2020-06-30] MEDS: ESCITALOPRAM OXALATE 10 MG TABLET PO SCH (10:35)
[2020-06-30] MEDS: ARIPiprazole 10 MG TABLET PO SCH (10:35)
[2020-06-30] MEDS: busPIRone HCL 10 MG TABLET (FP) PO SCH ×2 (10:35→22:15)
[2020-06-30] MEDS: amLODIPine BESYLATE 5 MG TABLET (FP) PO SCH (10:35)
[2020-06-30] MEDS: LISINOPRIL 20 MG TABLET PO SCH (10:35)
[2020-06-30] MEDS: IBUPROFEN 400 MG TABLET (FP) PO PRN (10:38)
[2020-06-30] MEDS: PRENATAL VITAMINS W/ FOLIC ACID TABLET (FP) PO SCH (10:39)
[2020-06-30] MEDS: NICOTINE 7 MG/24 HOURS TOPICAL PATCH TD SCH (10:39)
--- NOTE | 2020-06-30 12:30 | PN ---
S CIWA - CIWA Score Nausea/Vomitin-Mild Nausea/No Vomiting Muscle Tremors: 1-None Visible, but [place] Anxiety: 1-Mildly Anxious Agitation: 1-Slight > Activity Paroxysmal Sweats: No Perspiration Orientation: 1-Uncertain about Date (date of week) Tacttile Disturbances: 0-None Auditory Disturbances: 0-None Visual Disturbances: 1-Very Mild Sensitivity Headache: 1-Very Mild CIWA-Ar Total Score: 7 BHS Progress Note (SOAP) Subjective: 60 years old male was admitted on 06/28/20 for alcohol withdrawal sx management treating with librium detox regiment ate breakfast in room resting in bed feels weak ambulating with cane slow steady Objective: 06/30/20 12:33 Vital Signs - 24 hr 06/29/20 06/29/20 06/30/20 16:49 20:51 07:06 Temperature 97.2 F L 97.8 F 97.5 F L Pulse Rate 94 H 97 H 83 Respiratory 18 20 20 Rate Blood Pressure 144/86 145/84 146/90 O2 Sat by Pulse 95 96 Oximetry (%) 06/30/20 08:14 Temperature 97.5 F L Pulse Rate 98 H Respiratory 18 Rate Blood Pressure 141/91 O2 Sat by Pulse Oximetry (%) Laboratory Tests 06/28/20 06/28/20 06/28/20 11:20 11:20 11:20 WBC 7.3 RBC 4.28 Hgb 13.6 Hct 40.4 MCV 94.4 MCH 31.8 MCHC 33.7 RDW 13.3 Plt Count 338 MPV 8.3 Sodium 138 Potassium 4.3 Chloride 105 Carbon Dioxide 25 Anion Gap 9 BUN 16.8 Creatinine 0.8 Est GFR (CKD-EPI)AfAm 113.33 Est GFR (CKD-EPI)NonAf 97.78 POC Glucometer Random Glucose 188 H Calcium 8.8 Total Bilirubin 0.4 AST 24 ALT 28 Alkaline Phosphatase 101 Total Protein 8.0 Albumin 4.1 Syphilis Serology Non-reactive COVID-19 (YAHAIRA) 06/28/20 06/28/20 06/29/20 11:52 13:05 05:26 WBC RBC Hgb Hct MCV MCH MCHC RDW Plt Count MPV Sodium Potassium Chloride Carbon Dioxide Anion Gap BUN Creatinine Est GFR (CKD-EPI)AfAm Est GFR (CKD-EPI)NonAf POC Glucometer 206 200 Random Glucose Calcium Total Bilirubin AST ALT Alkaline Phosphatase Total Protein Albumin Syphilis Serology COVID-19 (YAHAIRA) Not detected 06/30/20 05:53 WBC RBC Hgb Hct MCV MCH MCHC RDW Plt Count MPV Sodium Potassium Chloride Carbon Dioxide Anion Gap BUN Creatinine Est GFR (CKD-EPI)AfAm Est GFR (CKD-EPI)NonAf POC Glucometer 253 Random Glucose Calcium Total Bilirubin AST ALT Alkaline Phosphatase Total Protein Albumin Syphilis Serology COVID-19 (YAHAIRA) 06/30/20 12:36 bp elevation long history of hypertension treated with amlodipine lisinopril 06/30/20 12:37 increase amlodipine to 10 mg po daily long history of diabetes treated with metformin and januvia bgm subsiding due to medication compliance while in detox Assessment: 06/30/20 12:38 alcohol withdrawal hypertension diabetes Plan: librium regiment amlodipine 10 mg po daily continue metformin and januvia
[2020-06-30] MEDS: THIAMINE HCL 100 MG TABLET (FP) PO SCH (22:15)
[2020-06-30] MEDS: MELATONIN 5 MG TABLETS PO SCH (22:16)
[2020-06-30] MEDS: MIRTAZAPINE 15 MG TABLET (FP) PO SCH (22:16)
[2020-06-30] MEDS: ATORVASTATIN CA 20 MG TABLET (FP) PO SCH (22:16)
[2020-07-01] MEDS ORDERED: chlordiazePOXIDE HCL 10 MG CAPSULE PO PRN
[2020-07-01] MEDS: chlordiazePOXIDE HCL 10 MG CAPSULE PO SCH ×4 (05:21→22:13)
[2020-07-01] MEDS: hydrOXYzine PAMOATE 25 MG CAPSULE (FP) PO SCH (05:22)
--- NOTE | 2020-07-01 09:21 | PN ---
S CIWA - CIWA Score Nausea/Vomitin-Mild Nausea/No Vomiting Muscle Tremors: 1-None Visible, but [place] Anxiety: 1-Mildly Anxious Agitation: 1-Slight > Activity Paroxysmal Sweats: 1-Minimal Palms Moist ("when I woke up") Orientation: 0-Oriented Tacttile Disturbances: 0-None Auditory Disturbances: 0-None Visual Disturbances: 0-None Headache: 0-None Present CIWA-Ar Total Score: 5 BHS Progress Note (SOAP) Subjective: 60 years old male was admitted on 06/28/20 for alcohol withdrawal sx management treating with libirum detox regiment ambulating with cane due to right knee arthritis mr daugherty requests walker "just like my roommate" health teaching on weight loss and exercise as tolerated Objective: 07/01/20 09:18 Vital Signs - 24 hr 06/30/20 06/30/20 06/30/20 12:33 17:04 20:21 Temperature 98.0 F 97.5 F L 98.2 F Pulse Rate 97 H 94 H 98 H Respiratory 18 18 17 Rate Blood Pressure 151/90 147/95 155/96 O2 Sat by Pulse 96 95 Oximetry (%) 07/01/20 06:52 Temperature 97.8 F Pulse Rate 87 Respiratory 18 Rate Blood Pressure 147/91 O2 Sat by Pulse 95 Oximetry (%) Laboratory Tests 06/28/20 06/28/20 06/28/20 11:20 11:20 11:20 WBC 7.3 RBC 4.28 Hgb 13.6 Hct 40.4 MCV 94.4 MCH 31.8 MCHC 33.7 RDW 13.3 Plt Count 338 MPV 8.3 Sodium 138 Potassium 4.3 Chloride 105 Carbon Dioxide 25 Anion Gap 9 BUN 16.8 Creatinine 0.8 Est GFR (CKD-EPI)AfAm 113.33 Est GFR (CKD-EPI)NonAf 97.78 POC Glucometer Random Glucose 188 H Calcium 8.8 Total Bilirubin 0.4 AST 24 ALT 28 Alkaline Phosphatase 101 Total Protein 8.0 Albumin 4.1 Syphilis Serology Non-reactive COVID-19 (YAHAIRA) 06/28/20 06/28/20 06/29/20 11:52 13:05 05:26 WBC RBC Hgb Hct MCV MCH MCHC RDW Plt Count MPV Sodium Potassium Chloride Carbon Dioxide Anion Gap BUN Creatinine Est GFR (CKD-EPI)AfAm Est GFR (CKD-EPI)NonAf POC Glucometer 206 200 Random Glucose Calcium Total Bilirubin AST ALT Alkaline Phosphatase Total Protein Albumin Syphilis Serology COVID-19 (YAHAIRA) Not detected 06/30/20 06/30/20 07/01/20 05:53 16:35 05:20 WBC RBC Hgb Hct MCV MCH MCHC RDW Plt Count MPV Sodium Potassium Chloride Carbon Dioxide Anion Gap BUN Creatinine Est GFR (CKD-EPI)AfAm Est GFR (CKD-EPI)NonAf POC Glucometer 253 285 291 Random Glucose Calcium Total Bilirubin AST ALT Alkaline Phosphatase Total Protein Albumin Syphilis Serology COVID-19 (YAHAIRA) 07/01/20 09:35 anti diabetes oral medications were not available at the pharmacy insulin coverage is necessary begin insulin coverage Assessment: 07/01/20 09:37 alcohol withdrawal Plan: librium regiment
[2020-07-01] MEDS ORDERED: cloNIDine HCL 0.1 MG TABLET PO PRN (09:27)
[2020-07-01] MEDS: ESCITALOPRAM OXALATE 10 MG TABLET PO SCH (09:53)
[2020-07-01] MEDS: ARIPiprazole 10 MG TABLET PO SCH (09:53)
[2020-07-01] MEDS: busPIRone HCL 10 MG TABLET (FP) PO SCH ×2 (09:53→22:12)
[2020-07-01] MEDS: PRENATAL VITAMINS W/ FOLIC ACID TABLET (FP) PO SCH (09:53)
[2020-07-01] MEDS: amLODIPine BESYLATE 10 MG TABLET (FP) PO SCH (09:54)
[2020-07-01] MEDS: LISINOPRIL 20 MG TABLET PO SCH (09:54)
[2020-07-01] MEDS: NICOTINE 7 MG/24 HOURS TOPICAL PATCH TD SCH (09:56)
[2020-07-01] MEDS: INSULIN SLIDING SCALE (NOVOLOG) 1 VIAL SQ SCH (17:01)
[2020-07-01] MEDS: MIRTAZAPINE 15 MG TABLET (FP) PO SCH (22:12)
[2020-07-01] MEDS: THIAMINE HCL 100 MG TABLET (FP) PO SCH (22:14)
[2020-07-01] MEDS: ATORVASTATIN CA 20 MG TABLET (FP) PO SCH (22:15)
[2020-07-01] MEDS: MELATONIN 5 MG TABLETS PO SCH (22:15)
[2020-07-01] MEDS: IBUPROFEN 400 MG TABLET (FP) PO PRN (22:37)
[2020-07-02] MEDS: chlordiazePOXIDE HCL 10 MG CAPSULE PO SCH ×2 (05:27→17:37)
[2020-07-02] MEDS: INSULIN SLIDING SCALE (NOVOLOG) 1 VIAL SQ SCH ×3 (06:25→21:57)
[2020-07-02] MEDS ORDERED: INSULIN SLIDING SCALE (NOVOLOG) 1 VIAL SQ ONE (06:25)
[2020-07-02] MEDS: ARIPiprazole 10 MG TABLET PO SCH (10:03)
[2020-07-02] MEDS: LISINOPRIL 20 MG TABLET PO SCH (10:04)
[2020-07-02] MEDS: busPIRone HCL 10 MG TABLET (FP) PO SCH ×2 (10:04→22:25)
[2020-07-02] MEDS: ESCITALOPRAM OXALATE 10 MG TABLET PO SCH (10:04)
[2020-07-02] MEDS: amLODIPine BESYLATE 10 MG TABLET (FP) PO SCH (10:04)
[2020-07-02] MEDS: NICOTINE 7 MG/24 HOURS TOPICAL PATCH TD SCH (10:06)
[2020-07-02] MEDS: PRENATAL VITAMINS W/ FOLIC ACID TABLET (FP) PO SCH (10:06)
--- NOTE | 2020-07-02 11:32 | PN ---
S CIWA - CIWA Score Nausea/Vomitin-No Nausea/No Vomiting Muscle Tremors: 1-None Visible, but [place] Anxiety: 1-Mildly Anxious Agitation: 0-Normal Activity Paroxysmal Sweats: No Perspiration Orientation: 0-Oriented Tacttile Disturbances: 0-None Auditory Disturbances: 0-None Visual Disturbances: 1-Very Mild Sensitivity Headache: 0-None Present CIWA-Ar Total Score: 3 BHS Progress Note (SOAP) Subjective: 60 years old male was admitted on 06/28/20 for alcohol withdrawal sx management treating with libirum detox regiment feels better today less tremor mild anxiety discussing aftercare with staff mr daugherty prefers to go to [facility] for alcohol abuse treatment Objective: 07/02/20 11:32 Vital Signs - 24 hr 07/01/20 07/01/20 07/01/20 13:33 16:31 20:33 Temperature 97.3 F L 97.1 F L 97.3 F L Pulse Rate 98 H 107 H 95 H Respiratory 18 18 18 Rate Blood Pressure 143/93 145/90 144/91 O2 Sat by Pulse 96 95 Oximetry (%) 07/02/20 07/02/20 06:27 09:52 Temperature 97.2 F L 96.8 F L Pulse Rate 75 98 H Respiratory 20 20 Rate Blood Pressure 113/76 158/102 H O2 Sat by Pulse 97 Oximetry (%) Laboratory Tests 06/28/20 06/28/20 06/28/20 11:20 11:20 11:20 WBC 7.3 RBC 4.28 Hgb 13.6 Hct 40.4 MCV 94.4 MCH 31.8 MCHC 33.7 RDW 13.3 Plt Count 338 MPV 8.3 Sodium 138 Potassium 4.3 Chloride 105 Carbon Dioxide 25 Anion Gap 9 BUN 16.8 Creatinine 0.8 Est GFR (CKD-EPI)AfAm 113.33 Est GFR (CKD-EPI)NonAf 97.78 POC Glucometer Random Glucose 188 H Calcium 8.8 Total Bilirubin 0.4 AST 24 ALT 28 Alkaline Phosphatase 101 Total Protein 8.0 Albumin 4.1 Syphilis Serology Non-reactive COVID-19 (YAHAIRA) 06/28/20 06/28/20 06/29/20 11:52 13:05 05:26 WBC RBC Hgb Hct MCV MCH MCHC RDW Plt Count MPV Sodium Potassium Chloride Carbon Dioxide Anion Gap BUN Creatinine Est GFR (CKD-EPI)AfAm Est GFR (CKD-EPI)NonAf POC Glucometer 206 200 Random Glucose Calcium Total Bilirubin AST ALT Alkaline Phosphatase Total Protein Albumin Syphilis Serology COVID-19 (YAHAIRA) Not detected 06/30/20 06/30/20 07/01/20 05:53 16:35 05:20 WBC RBC Hgb Hct MCV MCH MCHC RDW Plt Count MPV Sodium Potassium Chloride Carbon Dioxide Anion Gap BUN Creatinine Est GFR (CKD-EPI)AfAm Est GFR (CKD-EPI)NonAf POC Glucometer 253 285 291 Random Glucose Calcium Total Bilirubin AST ALT Alkaline Phosphatase Total Protein Albumin Syphilis Serology COVID-19 (YAHAIRA) 07/01/20 07/02/20 16:45 05:26 WBC RBC Hgb Hct MCV MCH MCHC RDW Plt Count MPV Sodium Potassium Chloride Carbon Dioxide Anion Gap BUN Creatinine Est GFR (CKD-EPI)AfAm Est GFR (CKD-EPI)NonAf POC Glucometer 378 244 Random Glucose Calcium Total Bilirubin AST ALT Alkaline Phosphatase Total Protein Albumin Syphilis Serology COVID-19 (YAHAIRA) 07/02/20 11:34 insulin dependent diabetes continue bgm with insulin coverage Assessment: 07/02/20 11:35 alcohol withdrawal Plan: librium regiment
[2020-07-02] MEDS ORDERED: MASKS NR ONE (18:43)
--- NOTE | 2020-07-02 19:55 | PN ---
S Progress Note Note: pt w/ elevated FS 504, 409 BGM increased to ACHS pt reported to nursing he was drinking juice and milk , eating a lot of bread and peanut butter today . encouraged water intake . pt educated extensively about diet
[2020-07-02] MEDS: MELATONIN 5 MG TABLETS PO SCH (22:25)
[2020-07-02] MEDS: ATORVASTATIN CA 20 MG TABLET (FP) PO SCH (22:25)
[2020-07-02] MEDS: THIAMINE HCL 100 MG TABLET (FP) PO SCH (22:25)
[2020-07-02] MEDS: MIRTAZAPINE 15 MG TABLET (FP) PO SCH (22:25)
[2020-07-03] MEDS ORDERED: chlordiazePOXIDE HCL 10 MG CAPSULE PO ONE (05:00)
[2020-07-03] MEDS: INSULIN SLIDING SCALE (NOVOLOG) 1 VIAL SQ SCH (07:05)
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
[2020-07-03 09:17] VITALS: BP 153/92; PULSE 103; TEMP 97.5
[2020-07-03] MEDS: busPIRone HCL 10 MG TABLET (FP) PO SCH (10:18)
[2020-07-03] MEDS: PRENATAL VITAMINS W/ FOLIC ACID TABLET (FP) PO SCH (10:18)
[2020-07-03] MEDS: ARIPiprazole 10 MG TABLET PO SCH (10:19)
[2020-07-03] MEDS: LISINOPRIL 20 MG TABLET PO SCH (10:19)
[2020-07-03] MEDS: amLODIPine BESYLATE 10 MG TABLET (FP) PO SCH (10:19)
[2020-07-03] MEDS: ESCITALOPRAM OXALATE 10 MG TABLET PO SCH (10:19)
[2020-07-03] MEDS: NICOTINE 7 MG/24 HOURS TOPICAL PATCH TD SCH (10:20)
== END 2020-07-03 11:35 | disposition other institution (70) | DRG 774 ==
LOC: YASAS 10:00 → Y3N 11:36
PROVIDERS: ADMIT Allergy & Immunology; ATTEND Allergy & Immunology
PROC: HZ2ZZZZ Detoxification Services for Substance Abuse Treatment (ICD-10-PCS; principal; 2020-06-28)
DX: F10.230 Alcohol dependence with withdrawal, uncomplicated (principal); F14.20 Cocaine dependence, uncomplicated; F17.210 Nicotine dependence, cigarettes, uncomplicated; F19.24 Other psychoactive substance dependence with psychoactive substance-induced mood disorder; F41.9 Anxiety disorder, unspecified; F32.9 Major depressive disorder, single episode, unspecified; E78.00 Pure hypercholesterolemia, unspecified; I10 Essential (primary) hypertension; J45.909 Unspecified asthma, uncomplicated; B18.2 Chronic viral hepatitis C; E11.9 Type 2 diabetes mellitus without complications; Z79.4 Long term (current) use of insulin; M17.0 Bilateral primary osteoarthritis of knee; Z86.19 Personal history of other infectious and parasitic diseases; Z99.89 Dependence on other enabling machines and devices; Z91.5 Personal history of self-harm; S60.021D Contusion of right index finger without damage to nail, subsequent encounter; Y04.8XXD Assault by other bodily force, subsequent encounter; Z98.890 Other specified postprocedural states
CPT/HCPCS: 36415; 71046-TC-FY; 80053; 82962; 85027; 86780; C9803; J0735; U0003